=== PATIENT | female | born 1960 | race Caucasian/White ===

== ENCOUNTER 2024-12-21 18:57 | Emergency (ER) | payer MEDICARE, MEDICAID ==
[~2024-12-21] VITALS: Ht 165.1 cm; Wt 63.0 kg
[~2024-12-21 18:57] MED LIST: FOLI0.4T6 PO; GABA-530 PO; IBUP-2697 PO; LISI20TA28 PO; MAGN500C4 PO; MULT-25 PO; NOR5T PO; thiamine tablet PO
--- NOTE | 2024-12-21 19:27 | ELECTROCARDIOGRAPH REPORT ---
[facility] Test Date: 2024-12-21 Test Time: 19:24:14 Pat Name: JANIA MCKINLEY Department: EMERGENCY ROOM Room: Gender: F Sander Operator: : 1960 Requested By: FAN GONSALVES Order Number: [id number] Reading MD: Dr. Ceasar Romero Measurements Intervals [place] Rate: 110 P: 88 SC: 160 QRS: -7 QRSD: 90 T: 52 QT: 340 QTc: 461 Interpretive Statements Sinus tachycardia Low voltage, extremity and precordial leads Electronically Signed On 12-23-2024 19:15:[address] Ceasar Romero Please click the below link to view image of tracing.
[2024-12-21 19:37] LABS: MEAN PLATELET VOLUME 8.6 FL (7.4-10.4); RED CELL DISTRIBUTION WIDTH 14.5 % (11.5-14.5)
[2024-12-21 19:56] LABS: CREATININE 1.26 MG/DL (0.40-0.90); TOTAL CARBON DIOXIDE 17.1 MMOL/L (24-32); eCRCL 41 ML/MIN; eGFR 43 ML/MIN
--- NOTE | 2024-12-21 20:22 | Physician Documentation ---
History of Present Illness ~ Chief Complaint: Bloody Emesis Stated Complaint: VOMITTING Time Seen by MD: 20:09 Primary Medical Doctor: Lien Mode of Arrival: EMS HPI Patient presents to the emergency room with hematemesis since today. Patient is not on blood thinners but does take daily NSAIDs. No prior instances. She denies any black stools. Positive nausea. Patient has relapsed recently from her sister passing and admits to significant alcohol recently. Medication Reconciliation Allergies: Coded Allergies: nabumetone (Verified Allergy, Unknown, 06/10/24) Scheduled Amlodipine Besylate (Amlodipine Besylate), 5 MG PO DAILY Folic Acid* (Folic Acid*), 1 TAB PO HS, (Reported) Gabapentin (Gabapentin), 3 CAP PO TID, (Reported) Ibuprofen (Ibuprofen), 3 TAB PO Q8H, (Reported) Lisinopril (Lisinopril), 20 MG PO DAILY Magnesium Oxide (Magnesium), 500 MG PO DAILY Multivitamin with Folic Acid (Thera Tablet), 1 EACH PO Q24H [thiamine tablet], 100 MG PO DAILY Review of Systems ROS All review of systems negative except as per HPI Physical Exam Vital Signs: Temperature: 97.3, Source: Oral, Heart Rate: 110, Respiratory Rate: 19, BP: 130/67, Pulse Oximetry: 97, Weight: 63.000 Oxygen Flow Rate: 0 Physical Exam General: Patient is awake, alert, oriented x4 in no acute distress Head: Normocephalic and atraumatic. Eyes: Conjunctival normal. EOMI. PERRL. ENT: Mucous membranes moist. Neck: Supple, trachea is midline. Chest: Clear to auscultation bilaterally without rales, rhonchi, or wheezes. There is no accessory muscle use or retractions. Cardiac: Tachycardic and regular without murmurs, gallops, or rubs. Abd: Soft, nondistended, nontender, with normoactive bowel sounds. No guarding, rebound, or rigidity. Progress Progress Note EKG interpreted by myself shows time of 1923, rate 110, sinus tachycardia, normal axis, no ST changes Results/Orders Results/Orders Orders - KALIN ZAYAS MD Straight Cath For Urine Sample (12/21/24 19:11) Cult Urine + [address] [facility] (12/21/24 23:08) Completed Orders - KALIN ZAYAS MD Cbc/Diff (12/21/24 19:11) Lipase (12/21/24 19:11) CMP (12/21/24 19:11) Hcg, Ur Ql (12/21/24 19:22) BMP (12/21/24 19:22) Electrocardiogram (12/21/24 19:23) Thiamine Inj. (Thiamine Inj.) (12/21/24 20:20) Normal Saline 1000ml (0.9% Sodium Chlori (12/21/24 20:20) Pantoprazole 40mg Iv (Protonix 40mg Iv) (12/21/24 20:20) Ethanol (12/21/24 19:32) Procalcitonin (12/21/24 20:36) Ondansetron Inj. (Zofran 4mg/2ml Vial) (12/21/24 20:50) Pantoprazole 40mg/Ns 100ml Bag (Protonix (12/21/24 21:45) Ua W/Microscopic, Cult If Ind (12/21/24 22:55) Morphine 4mg/Ml Inj. (Morphine Inj.) (12/22/24 00:25) Midazolam 1 Mg/Ml 2ml Inj. (Versed 1 Mg/ (12/22/24 00:50) Vital Signs 12/21/24 12/21/24 12/21/24 12/22/24 19:09 19:31 23:17 01:23 Temp 97.3 97.3 97.3 Pulse 110 114 118 Resp 19 28 17 B/P (MAP) 130/67 143/70 (94) 119/54 (75) Pulse Ox 97 96 94 O2 Flow Rate 0 0 0 Laboratory Tests Test 12/21/24 19:32 12/21/24 22:55 White Blood Count 17.5 H Red Blood Count 4.35 Hemoglobin 13.0 Hematocrit 39.2 Mean Corpuscular Volume 90.1 Mean Corpuscular Hemoglobin 29.8 Mean Corpuscular Hemoglobin Concent 33.1 Red Cell Distribution Width 14.5 Platelet Count 250 Mean Platelet Volume 8.6 Neutrophils (%) (Auto) 88.1 H Lymphocytes (%) (Auto) 9.9 L Monocytes (%) (Auto) 1.7 L Eosinophils (%) (Auto) 0 Basophils (%) (Auto) 0.3 Neutrophils # (Auto) 15.4 H Lymphocytes # (Auto) 1.7 Monocytes # (Auto) 0.3 Eosinophils # (Auto) 0.0 Basophils # (Auto) 0.1 CBC Comment Sodium Level 141 Potassium Level 4.6 Chloride Level 103 Carbon Dioxide Level 17.1 L Anion Gap 21 H Blood Urea Nitrogen 38 H Creatinine 1.26 H Estimated GFR/1.73 m2 43 BUN/Creatinine Ratio 30.2 H Glucose Level 85 Calcium Level 8.9 Total Bilirubin 0.3 Aspartate Amino Transf (AST/SGOT) 24 Alanine Aminotransferase (ALT/SGPT) 25 Alkaline Phosphatase 107 Total Protein 7.8 Albumin 4.2 Globulin 3.6 Albumin/Globulin Ratio 1.2 Lipase 10 L Procalcitonin 0.09 Chemistry Comments Ethyl Alcohol Level 249 H Urine Specimen Description Cln catch midstream Urine Color Yellow Urine Clarity Clear Urine pH 5.5 Urine Specific [place] 1.025 Urine Protein Negative Urine Glucose (UA) Negative Urine Ketones 40 H Urine Occult Blood Negative Urine Nitrite Negative Urine Bilirubin Negative Urine Urobilinogen 0.2 Urine Leukocyte Esterase Trace H Urine RBC 0-2 Urine WBC 5-10 H Urine Squamous Epithelial Cells Moderate Urine Bacteria Few Urine Mucus Few Urine Culture Indicated Indicated Volume Urine Centrifuged 10 ml Urine HCG, Qualitative Negative Urine Comment Microbiology Date/Time Source Procedure Growth Status 12/21/24 23:08 Urine Clean Catch Midstream Urine Culture - Preliminary NO GROWTH AFTER 1 DAY Resulted Medical Decision Making Findings Patient presents to the emergency room with chief complaint of hematemesis witnessed by EMS. Differentials include but are not limited to upper GI bleed, ulcer, esophageal varices, Snehal-Jimenez, anemia therefore emergent labs ordered. No abdominal tenderness to palpation therefore CT scan of her abdomen was not performed. Patient's hemoglobin is reassuring although she does have an elevated BUN suggesting upper GI bleed. Protonix initiated. I do not feel saul prieto requires octreotide as she only recently relapsed and denies any black stools. Daily NSAID use that has likely contributing to patient's GI bleed. No additional hematemesis in the emergency room. We do not have GI services therefore we are arranging transfer to facility with GI services. Departure Disposition: 51 HOSPICE/MEDICAL FACILITY Impression: Primary Impression: Hematemesis Additional Impression: Alcoholic intoxication Condition: Guarded Referrals: NO PRIMARY CARE PROVIDER (PCP) Signature Scribe Signature: No scribe Attestation: The note accurately reflects work and decisions made by me.Kalin Zayas MD 12/23/24 00:56 KALIN ZAYAS MD Dec 21, 2024 20:22
[2024-12-21 20:31] LABS: ETHANOL 249 MG/DL (<10)
[2024-12-21] MEDS: thiamine 100mg/ml 2ml inj. IV ONE (20:41)
[2024-12-21] MEDS: normal saline 1000ML IV soln IVB ONE (20:43)
[2024-12-21] MEDS: ondansetron/PF 4mg/2ml inj IV ONE (21:10)
[2024-12-21 23:02] LABS: LEUKOCYTE ESTERASE ,URINE TRACE (Neg); NITRITES, URINE NEGATIVE (Neg); OCCULT BLOOD,URINE NEGATIVE (Neg)
[2024-12-21 23:03] LABS: URINE HCG NEGATIVE (NEG)
[2024-12-21 23:05] LABS: UA COLLECTION TYPE CLN CATCH MIDSTREAM
[2024-12-21 23:07] LABS: MUCUS STRANDS FEW /LPF (Neg); SQUAMOUS EPITHELIAL CELL,UR MODERATE /LPF (FEW)
[2024-12-21] MEDS: pantoprazole 40MG/NS 100ML BAG 100 ML IV SCH (23:08)
[2024-12-22] MEDS: midazolam 1 mg/ML 2ml injection IV ONE (01:03)
[2024-12-22 01:23] VITALS: BP 119/54; PULSE 118; RESP 17; TEMP 97.3; O2SAT 94
[2024-12-22] MEDS: morphine 4 MG/ML inj SYRINge IV ONE (01:38)
== END 2024-12-22 03:03 | disposition hospice, inpatient (51) ==
LOC: ER 18:58
DX: K92.0 Hematemesis (principal); F10.129 Alcohol abuse with intoxication, unspecified; Z88.8 Allergy status to other drugs, medicaments and biological substances; Z79.899 Other long term (current) drug therapy; Y90.8 Blood alcohol level of 240 mg/100 ml or more
CPT/HCPCS: 36415; 80053; 81001; 81025; 83690; 84145; 85025; 87088; 93005; 96365; 96366; 96375; 99284; G0480; J2250; J2270; J2405; J2470; J3411; J7030; 80320

== ENCOUNTER 2025-02-02 13:13 | Inpatient (IN) | payer MEDICARE, MEDICAID ==
[~2025-02-02] VITALS: Ht 167.6 cm; Wt 65.9 kg
[~2025-02-02 13:13] MED LIST changes: +FER325T PO; -IBUP-2697 PO; +PANT40TA54 PO
--- NOTE | 2025-02-02 13:24 | Physician Documentation ---
History of Present Illness ~ Chief Complaint: ETOH Stated Complaint: GI BLEED Time Seen by MD: 13:19 Primary Medical Doctor: Lien VERGARA 64-year-old female presents to the ED with a complaint one day of hematemesis. States that she had stopped drinking previously and recently has been drinking large amounts of hard alcohol. She says she thinks she may be drinking a proximally 1/5 of vodka daily. She says she does have a history gastric ulcers which required surgical correction she denies any black tarry stools but reports that the vomit is coffee-ground in nature. Denies any history of esophageal varices. Tetanus within 5 years?: Yes Medication Reconciliation Allergies: Coded Allergies: nabumetone (Verified Allergy, Unknown, 02/02/25) Scheduled Amitriptyline Hcl (Amitriptyline Hcl), 1-2 TAB PO HS, (Reported) Amlodipine Besylate (Amlodipine Besylate), 5 MG PO DAILY Amlodipine Besylate (Amlodipine Besylate), 1 TAB PO DAILY, (Reported) Cholecalciferol (Vitamin D3) (Vitamin D3), 1 TAB PO DAILY, (Reported) Ferrous Sulfate (Ferrous Sulfate), 325 MG PO DAILY Ferrous Sulfate (Ferrous Sulfate), 1 TAB PO DAILY, (Reported) Folic Acid* (Folic Acid*), 1 TAB PO HS, (Reported) Folic Acid* (Folic Acid*), 1 TAB PO DAILY, (Reported) Gabapentin (Gabapentin), 3 CAP PO TID, (Reported) Lisinopril (Lisinopril), 20 MG PO DAILY Magnesium Oxide (Magnesium), 500 MG PO DAILY Multivitamin (Multivitamin), 1 TAB PO DAILY, (Reported) Multivitamin with Folic Acid (Thera Tablet), 1 EACH PO Q24H Pantoprazole Sodium (Pantoprazole Sodium), 40 MG PO DAILY [thiamine tablet], 100 MG PO DAILY Miscellaneous Medications Gabapentin (Gabapentin ER), (Reported) Prazosin Hcl (Prazosin Hcl), (Reported) Review of Systems All Other Systems at this time: Reviewed and Negative ROS As stated above in the HPI, otherwise all systems are reviewed and negative. Physical Exam Vital Signs: Temperature: 97.8, Source: Oral, Heart Rate: 120, Respiratory Rate: 18, BP: 124/64, Pulse Oximetry: 98, Weight: 69.000 Physical Exam General: Alert, no apparent distress. Slurred speech, glossy eyes Respiratory: Lungs clear, no respiratory distress. Cardiovascular: Regular rate and rhythm, no murmurs. Gastrointestinal: Soft, nontender, nondistended. Bowels sounds present. Neurologic: Oriented x4. Psychiatric: Normal mood and affect. Skin: Mildly pale, warm and dry. No edema, no ecchymosis. General Appearance: no apparent distress Progress Results/Orders Results/Orders Orders - DOUG LAURENT MEAT DRESSER Page Hospitalist (02/02/25 ) Completed Orders - DOUG LAURENT MEAT DRESSER Hcg, Ur Ql (02/02/25 13:23) Cbc/Diff (02/02/25 13:23) BMP (02/02/25 13:23) Lipase (02/02/25 13:23) CMP (02/02/25 13:23) Normal Saline 1000ml (0.9% Sodium Chlori (02/02/25 13:30) Ondansetron Inj. (Zofran 4mg/2ml Vial) (02/02/25 13:30) Pantoprazole 40mg Iv (Protonix 40mg Iv) (02/02/25 13:30) Dextrose 5%-1/2 Normal Saline (Dextrose (02/02/25 15:05) Thiamine Inj. (Thiamine Inj.) (02/02/25 15:20) Folic Acid Inj. (Folic Acid Inj.) (02/02/25 15:20) Ethanol (02/02/25 13:33) MG (02/02/25 13:33) Medications Received in ER Medications (Trade) Dose Ordered Sig/Tomás Route PRN Reason Start Time Stop Time Status Last Admin Dose Admin (0.9% sodium chloride (NS) 1000ml IV soln) 1,000 ml ONCE ONCE IVB 02/02/25 13:30 02/02/25 13:31 DC 02/02/25 13:34 1,000 ML (Zofran 4mg/2ml vial) 4 mg ONCE ONCE IV 02/02/25 13:30 02/02/25 13:31 DC 02/02/25 13:34 4 MG (Protonix 40mg IV) 40 mg NOW ONCE IV 02/02/25 13:30 02/02/25 13:37 DC 02/02/25 14:15 40 MG Dextrose/Sodium Chloride 1,000 ml @ 200 mls/hr Q5H ONCE IV 02/02/25 15:05 02/02/25 15:30 DC 02/02/25 15:31 200 MLS/HR (thiamine inj.) 100 mg ONCE ONCE IV 02/02/25 15:20 02/02/25 15:21 DC 02/02/25 15:30 100 MG (folic acid inj.) 1 mg ONCE ONCE IV 02/02/25 15:20 02/02/25 15:21 DC 02/02/25 15:31 1 MG (morphine inj.) 1 mg Q4H PRN IV moderate pain (4-6) 02/02/25 15:15 02/02/25 17:39 1 MG Vital Signs 02/02/25 02/02/25 02/02/25 02/02/25 13:16 13:20 14:17 14:59 Temp 97.8 Pulse 120 116 115 Resp 18 16 16 18 B/P (MAP) 124/64 106/47 (66) 117/69 (85) Pulse Ox 98 97 98 O2 Flow Rate 0 0 Laboratory Tests Test 02/02/25 13:33 White Blood Count 10.9 Red Blood Count 4.47 Hemoglobin 13.2 Hematocrit 40.5 Mean Corpuscular Volume 90.6 Mean Corpuscular Hemoglobin 29.6 Mean Corpuscular Hemoglobin Concent 32.6 L Red Cell Distribution Width 14.3 Platelet Count 315 Mean Platelet Volume 9.2 Neutrophils (%) (Auto) 72.3 Lymphocytes (%) (Auto) 23.8 Monocytes (%) (Auto) 3.7 Eosinophils (%) (Auto) 0 Basophils (%) (Auto) 0.2 Neutrophils # (Auto) 7.9 H Lymphocytes # (Auto) 2.6 Monocytes # (Auto) 0.4 Eosinophils # (Auto) 0.0 Basophils # (Auto) 0.0 CBC Comment Sodium Level 140 Potassium Level 3.6 Chloride Level 98 L Carbon Dioxide Level 14.0 *L Anion Gap 28 H Blood Urea Nitrogen 27 H Creatinine 0.84 Estimated GFR/1.73 m2 68 BUN/Creatinine Ratio 32.1 H Glucose Level 59 L Lactic Acid Level 7.1 *H Calcium Level 9.1 Magnesium Level 1.9 Total Bilirubin 0.4 Aspartate Amino Transf (AST/SGOT) 28 Alanine Aminotransferase (ALT/SGPT) 20 Alkaline Phosphatase 92 Total Protein 8.0 Albumin 4.6 Globulin 3.4 Albumin/Globulin Ratio 1.4 Lipase 9 L Chemistry Comments Ethyl Alcohol Level 269 H Medical Decision Making Findings This patient initially presented intoxicated but in no acute distress however upon further evaluation of her laboratory values she presents with a all the clinical findings for alcoholic ketoacidosis. Treated her with a bolus of fluids, dextrose half-normal and hospital admission. Her CO2 was grossly abnormal and she had a lactic acidosis over seven. Going to admit her for further evaluation of alcoholic pancreatitis Differential Dx:Considerations: Intoxication - ETOH, Intoxication - other drug, Sub. Abuse -continuous, Sub. Abuse-intermittent, Skull fracture, Fracture - other bone, Personality disorder, Closed head injury, Cervical spine injury, Abrasion, Confusion, Hematoma, Laceration, Foreign body, Dehydration, Encephalopathy, Hepatitis, Pancreatitis, Thiamine deficiency, Other Departure Disposition: ADMITTED INPATIENT Impression: Primary Impression: Alcoholic intoxication Additional Impressions: Alcoholic ketoacidosis Hypokalemia Referrals: NO PRIMARY CARE PROVIDER (PCP) Signature Scribe Signature: v Attestation: Scribed for Doug Laurent Programming Engineer by Doug Gonzalez NP . 02/02/25 18:13 DOUG LAURENT NP Feb 02, 2025 13:24
--- NOTE | 2025-02-02 13:24 | ELECTROCARDIOGRAPH REPORT ---
[facility] Test Date: 2025-02-02 Test Time: 13:15:37 Pat Name: JANIA MCKINLEY Department: EMERGENCY ROOM Room: ED 2 Gender: F Resident Care Assistant: HALLE : 1960 Requested By: JASON ALLISON Order Number: [id number] Reading MD: Dr. Ceasar Romero Measurements Intervals [place] Rate: 116 P: 80 AR: 152 QRS: -13 QRSD: 93 T: 60 QT: 338 QTc: 470 Interpretive Statements Sinus tachycardia Low voltage, extremity and precordial leads Electronically Signed On 02-02-2025 18:24:[address] Ceasar Romero Please click the below link to view image of tracing.
[2025-02-02] MEDS: normal saline 1000ML IV soln IVB ONE (13:34)
[2025-02-02] MEDS: ondansetron/PF 4mg/2ml inj IV ONE (13:34)
[2025-02-02 14:05] LABS: MEAN PLATELET VOLUME 9.2 FL (7.4-10.4); RED CELL DISTRIBUTION WIDTH 14.3 % (11.5-14.5)
[2025-02-02 14:28] LABS: CREATININE 0.84 MG/DL (0.40-0.90); eCRCL 66 ML/MIN; eGFR 68 ML/MIN
[2025-02-02 14:42] LABS: TOTAL CARBON DIOXIDE 14.0 MMOL/L (24-32)
[2025-02-02] MEDS ORDERED: thiamine 100mg/ml 2ml inj. IV STA (15:11)
[2025-02-02] MEDS ORDERED: mag hydrox/Alum hydrox/simeth 30ml oral suspension PO PRN (15:15)
[2025-02-02] MEDS ORDERED: dextrose 50%-water 50ml dispensing syringe IV PRN ×2 (15:15)
[2025-02-02] MEDS ORDERED: DEXTROSE 15 GM of carb/4 tabs (each vial/BOTTLE has 4 tablets) PO PRN ×2 (15:15)
[2025-02-02] MEDS ORDERED: magnesium sulf-water 2g/50mL 50 ML IV PRN (15:15)
[2025-02-02] MEDS ORDERED: magnesium hydroxide 30ml (MOM) UD suspension PO PRN (15:15)
[2025-02-02] MEDS ORDERED: HYDROcodone/acetaminophen 10/325mg tab PO PRN (15:15)
[2025-02-02] MEDS ORDERED: glucagon, human recombinant 1mg kit SUBCUT PRN (15:15)
[2025-02-02] MEDS ORDERED: magnesium Cl slow-release 64mg tablet PO PRN (15:15)
[2025-02-02] MEDS ORDERED: potassium Cl 20 mEq SR tablet PO PRN (15:15)
[2025-02-02] MEDS ORDERED: potassium Cl 40MEQ/1/2NS 520ml 520 ML IV PRN (15:15)
[2025-02-02] MEDS ORDERED: haloperidol lactate 5mg/ml inj IM PRN (15:15)
[2025-02-02] MEDS ORDERED: HYDROcodone/acetaminophen 5mg/325mg tablet PO PRN (15:15)
[2025-02-02] MEDS ORDERED: magnesium sulf-water 4G/100mL 100 ML IV PRN (15:15)
[2025-02-02] MEDS ORDERED: FERR325T29 PO (15:16)
[2025-02-02] MEDS ORDERED: FOLI1TAB27 PO (15:16)
[2025-02-02] MEDS ORDERED: AMLO5TAB16 PO (15:16)
[2025-02-02] MEDS ORDERED: AMIT25TA22 PO (15:16)
[2025-02-02] MEDS ORDERED: MULT-1249 PO (15:16)
[2025-02-02] MEDS ORDERED: CHOL100017 PO (15:16)
[2025-02-02] MEDS: thiamine 100mg/ml 2ml inj. IV ONE (15:30)
[2025-02-02] MEDS: folic acid 1mg/0.2ml inj IV ONE (15:31)
[2025-02-02 16:00] LABS: ETHANOL 269 MG/DL (<10)
[2025-02-02] MEDS ORDERED: GABA300T28 (16:00)
[2025-02-02] MEDS ORDERED: PRAZ1CAP5 (16:00)
[2025-02-02] MEDS ORDERED: hydrALAZINE 20mg/ml inj. IV PRN (16:25)
--- NOTE | 2025-02-02 16:26 | HISTORY AND PHYSICAL ---
History & Physical Providers to ~ History of Present Illness Reason for Admit\Complaint: alcoholic ketoacidosis, UGIB History of Present Illness Cara Amador is a 64-year-old female with past medical history significant for chronic alcoholism with multiple relapses reflux esophagitis, pre-pyloric antral ulceration and duodenitis who presented to the ED with chief complaint of coffee-ground emesis x 2 days. Last alcohol intake was this morning. Patient denies prior DE/CAD, CVA, cardiac arrhythmia, DVT/PE, or GIB. Patient denies chest pain, palpitations, shortness of breath, abdominal pain, diarrhea. Initial diagnostic findings were notable for positive alcohol level, anion gap metabolic acidosis with bicarb at 14, elevated lactic acid at 7.1. Patient is to be admitted for further workups and treatment. Allergies: Coded Allergies: nabumetone (Verified Allergy, Unknown, 02/02/25) Home Medications Home Medications Active Pantoprazole Sodium 40 Mg Tablet.dr 40 Mg PO DAILY 30 Days Ferrous Sulfate 325 Mg (65 Mg Iron) Tablet 325 Mg PO DAILY 30 Days Magnesium (Magnesium Oxide) 500 Mg Capsule 500 Mg PO DAILY 10 Days Thera Tablet (Multivitamin with Folic Acid) 400 Mcg Tablet 1 Each PO Q24H 30 Days [thiamine tablet] 100 MG Tablet 100 Mg PO DAILY 30 Days Lisinopril 20 Mg Tablet 20 Mg PO DAILY 30 Days Amlodipine Besylate 5 Mg Tablet 5 Mg PO DAILY 30 Days Reported Gabapentin ER (Gabapentin) 300 Mg Tab.er.24h Prazosin Hcl 1 Mg Capsule Ferrous Sulfate 325 Mg (65 Mg Iron) Tablet 1 Tab PO DAILY Amitriptyline Hcl 25 Mg Tablet 1-2 Tab PO HS Amlodipine Besylate 5 Mg Tablet 1 Tab PO DAILY Multivitamin 1 Each Tablet 1 Tab PO DAILY Vitamin D3 (Cholecalciferol (Vitamin D3)) 25 Mcg (1000 Unit) Tablet 1 Tab PO DAILY Folic Acid* (Folic Acid) Y Tab 1 Tab PO DAILY Folic Acid* (Folic Acid) 0.4 Mg Tablet 1 Tab PO HS Gabapentin 100 Mg Capsule 3 Cap PO TID Past Medical History Past Medical History Hypertension Chronic alcoholism Reflux esophagitis Pyloric antral ulceration and duodenitis Past Surgical History Surgical History Comment Lumbar surgeries Past Social History Social History Comment Alcohol: Chronic alcoholism with multiple relapses, resumed consuming heavy liquor x 4 days Tobacco: Denies Illicit drug use: Denies Living situation: Lives at home alone ROS ROS Other than positives in HPI, all 14 review of systems are negative Exam Vitals: Vital Signs Date Time Temp Pulse Resp B/P (MAP) Pulse Ox O2 Delivery O2 Flow Rate FiO2 02/02/25 16:01 113 18 122/69 (86) 95 0 02/02/25 13:16 97.8 General: Generalized weakness, A&Ox 3, NAD HEENT: Normocephalic, PERRLA Neck: Supple, trachea midline, no JVD Chest: Clear to auscultation bilaterally Cardiovascular: Tachycardia Abdomen: Soft and nontender Extremities: No cyanosis/clubbing/or edema Central Nervous System: CN II-XII intact, no focal deficits Musculoskeletal: No paraspinal muscle tenderness, no muscle spasm Skin: Warm and intact Diagnostic Data Last Recorded Lab Results: 02/02/25 1333 02/02/25 1333 Additional Plan Assessment & Plan Alcoholic ketoacidosis Metabolic acidosis, AGMA Alcohol intoxication Alcohol withdrawal Dehydration UGIB HTN Hx reflux esophagitis, pre-pyloric antral ulceration, duodenitis -bicarb 14, ketouria, elevated serum alcohol, hypoglycemia, lactic acid 7.1 -alcohol withdrawal protocol, thiamine, folic acid, fluid resuscitation, D51/2NS, PPI, consulted GI Dr. Brewster -follow repeat lactic acid, repeat BMP DVT/VTE prophylaxis: SCDs Code status: Full code I spent a total of 35 minutes discussing Advanced Care Planning measures with the patient. Advance care planning: Discussed with patient the importance of advance care planning in case of emergent situation. We discussed various resuscitative measures/ ACP with the patient at the time of admission. Patient voiced understanding and patient has decided on a full code status. Date of Service: Feb 02, 2025 Billing Provider: GOYO GARCIA Common Visit Codes: 53195-[id number] INP/OBS CARE (HIGH) Secondary Visit Codes: 08437-[id number] CARE PLAN 30 MINUTES GOYO GARCIA Feb 02, 2025 16:26
[2025-02-02] MEDS: INSULIN LISPRO 100 UNIT/ML INSULN.PEN MULTI-DOSE SQ SCH (17:00)
--- NOTE | 2025-02-02 17:21 | HISTORY AND PHYSICAL-Residence ---
History & Physical Providers to CC Resident Creating Document: JUAN RAMON BOND MARINO, RES ~ History of Present Illness Primary Medical Doctor: Namehaus Reason for Admit\Complaint: hematemesis History of Present Illness A 64-year-old female with past medical history significant of chronic alcoholism, reflux esophagitis, pre-pyloric antral ulceration and duodenitis, hypertension who presented to the ED with chief complaint of coffee-ground emesis started today morning associated with mild abdominal pain. Last alcohol intake was this morning. Patient states that she stopped drinking alcohol 2 years ago but she again started drinking alcohol from the past 4 days. She drinks about 700-1000 mL vodka per day. Patient denies any blood tarry stools. Denies any history of esophageal varices. Patient denies chest pain, palpitations, shortness of breath, diarrhea, constipation, syncope, dizziness. Patient had EGD in December which showed gastric ulcer. Patient never had colonoscopy. Allergies: Coded Allergies: nabumetone (Verified Allergy, Unknown, 02/02/25) Home Medications Home Medications Active Pantoprazole Sodium 40 Mg Tablet.dr 40 Mg PO DAILY 30 Days Ferrous Sulfate 325 Mg (65 Mg Iron) Tablet 325 Mg PO DAILY 30 Days Magnesium (Magnesium Oxide) 500 Mg Capsule 500 Mg PO DAILY 10 Days Thera Tablet (Multivitamin with Folic Acid) 400 Mcg Tablet 1 Each PO Q24H 30 Days [thiamine tablet] 100 MG Tablet 100 Mg PO DAILY 30 Days Lisinopril 20 Mg Tablet 20 Mg PO DAILY 30 Days Amlodipine Besylate 5 Mg Tablet 5 Mg PO DAILY 30 Days Reported Gabapentin ER (Gabapentin) 300 Mg Tab.er.24h Prazosin Hcl 1 Mg Capsule Ferrous Sulfate 325 Mg (65 Mg Iron) Tablet 1 Tab PO DAILY Amitriptyline Hcl 25 Mg Tablet 1-2 Tab PO HS Amlodipine Besylate 5 Mg Tablet 1 Tab PO DAILY Multivitamin 1 Each Tablet 1 Tab PO DAILY Vitamin D3 (Cholecalciferol (Vitamin D3)) 25 Mcg (1000 Unit) Tablet 1 Tab PO DAILY Folic Acid* (Folic Acid) Y Tab 1 Tab PO DAILY Folic Acid* (Folic Acid) 0.4 Mg Tablet 1 Tab PO HS Gabapentin 100 Mg Capsule 3 Cap PO TID Past Medical History Past Medical History chronic alcoholism Reflux esophagitis pre-pyloric antral ulceration and duodenitis Hypertension Past Surgical History Surgical History Comment Intestinal rupture with colostomy bag (removed) Lumbar surgeries Past Social History Social History Comment Ex-smoker, smoked 5-6 cigarettes per day for about 20 years and stopped smoking in June 2023. Chronic alcoholism with multiple relapses, resumed consuming heavy liquor x 4 days Denies any recreational drug use She lives at home alone ROS All Other Systems: Reviewed and Negative ROS Constitutional: No fever, chills, dizziness, weight gain or loss, night sweats Eyes: No pain, erythema, discharge, blurring of vision ENT: No sore throat, epistaxis, tinnitus Cardiovascular:No chest pain, palpitations, syncope, lower extremity edema, paroxysmal nocturnal dyspnea Respiratory: No Shortness of breath and cough, No hemoptysis. Gastrointestinal:Reports Abdominal pain, vomiting,nausea . Normal appetite. No constipation,diarrhea, hematemesis, and melena. Musculoskeletal: No swelling or edema of extremities. Integumentary: No change in skin, hair, nails. No swelling, bruising, abrasions Neurologic: No weakness,No headache, neck pain, numbness or tingling of the extremities, Psychiatric: No delusions, depression, loss of interest in normal activity or change in sleep pattern, hallucinations, suicidal ideations Endocrine: No fatigue, no weakness. polydipsia, polyuria, change in appetite, heat or cold intolerance, sweating, dry skin Hematological: No bleeding, petechiae, bruising Allergies: No asthma or urticaria Exam Vitals: Vital Signs Date Time Temp Pulse Resp B/P (MAP) Pulse Ox O2 Delivery O2 Flow Rate FiO2 02/02/25 16:01 113 18 122/69 (86) 95 0 02/02/25 13:16 97.8 General: Awake , alert and oriented to time,place, person, in mild distress HEENT: Atraumatic, normocephalic, PERRLA, EOMI, anicteric sclera ; pink conjunctiva, dry mucos membranes Neck: Trachea midline. Supple, normal range of motion, no JVD, no lymphadenopathy Chest and Respiratory: Equal breath sounds bilaterally, no tachypnea, wheezing, ronchi,rubs .Chest wall is symmetric and without deformity. Cardiac: S1, S2 heard, tachycardia with regular rhythm, no murmurs heard. Abdomen: Soft, No tenderness, No guarding or rigidity, Whitaker's sign negative. normal bowel sounds x4 quadrant, no hepatosplenomegaly MSK: Range of motion of all extremities are normal. There is no joint pain or joint swelling or joint erythema. There is no muscle pain or tenderness or swelling. Extremities: warm, well-perfused, No cyanosis, clubbing, 2+ pulses felt Neurological: Speech is clear, alert, and oriented x 4. No sensory or motor deficits. Cranial nerves II-XII intact. Skin: Warm and dry Psychiatry: Affect and mood are normal Diagnostic Data Last Recorded Lab Results: 02/02/25 1333 02/02/25 1333 Date of Service: Feb 02, 2025 Billing Provider: CASSANDRA SANTIAGO MD, SUNIL KUMAR, RES Feb 02, 2025 17:21
[2025-02-02 17:24] LABS: URINE HCG NEGATIVE (NEG)
[2025-02-02 17:26] LABS: LEUKOCYTE ESTERASE ,URINE NEGATIVE (Neg); NITRITES, URINE NEGATIVE (Neg); OCCULT BLOOD,URINE TRACE-INTACT (Neg)
[2025-02-02 17:28] LABS: UA COLLECTION TYPE CLN CATCH MIDSTREAM
[2025-02-02 17:32] LABS: MUCUS STRANDS NONE SEEN /LPF (Neg); SQUAMOUS EPITHELIAL CELL,UR NONE SEEN /LPF (FEW)
[2025-02-02] MEDS: ringers solution, lacted 1,000 ML IV ONE (17:38)
[2025-02-02 17:43] LABS: URINE AMPHETAMINE SCREEN NEGATIVE (Neg); URINE BARBITUATE SCREEN NEGATIVE (Neg); URINE BENZODIAZEPINES SCREEN NEGATIVE (Neg); URINE CANNABINOID SCREEN NEGATIVE (Neg); URINE COCAINE SCREEN NEGATIVE (Neg); URINE METHADONE SCREEN NEGATIVE (Neg); URINE OPIATE SCREEN POSITIVE (Neg); URINE PHENCYCLIDINE SCREEN NEGATIVE (Neg)
--- NOTE | 2025-02-02 17:52 | CONSULTATION REPORT - RESIDENT ---
Consult Providers to CC Resident Creating Document: JUAN RAMON DAMON RES History of Present Illness Reason for Admit\Complaint: hematemesis History of Present Illness A 64-year-old female with past medical history significant of chronic alcoholism, reflux esophagitis, pre-pyloric antral ulceration and duodenitis, hypertension who presented to the ED with chief complaint of coffee-ground emesis started today morning associated with mild abdominal pain. Last alcohol intake was this morning. Patient states that she stopped drinking alcohol 2 years ago but she again started drinking alcohol from the past 4 days. She drinks about 700-1000 mL vodka per day. Patient denies any blood tarry stools. Denies any history of esophageal varices. Patient denies chest pain, palpitations, shortness of breath, diarrhea, constipation, syncope, dizziness. Patient had EGD in December which showed gastric ulcer. Patient never had colonoscopy. Allergies: Coded Allergies: nabumetone (Verified Allergy, Unknown, 02/02/25) Home Medications Home Medications Active Pantoprazole Sodium 40 Mg Tablet.dr 40 Mg PO DAILY 30 Days Ferrous Sulfate 325 Mg (65 Mg Iron) Tablet 325 Mg PO DAILY 30 Days Magnesium (Magnesium Oxide) 500 Mg Capsule 500 Mg PO DAILY 10 Days Thera Tablet (Multivitamin with Folic Acid) 400 Mcg Tablet 1 Each PO Q24H 30 Days [thiamine tablet] 100 MG Tablet 100 Mg PO DAILY 30 Days Lisinopril 20 Mg Tablet 20 Mg PO DAILY 30 Days Amlodipine Besylate 5 Mg Tablet 5 Mg PO DAILY 30 Days Reported Gabapentin ER (Gabapentin) 300 Mg Tab.er.24h Prazosin Hcl 1 Mg Capsule Ferrous Sulfate 325 Mg (65 Mg Iron) Tablet 1 Tab PO DAILY Amitriptyline Hcl 25 Mg Tablet 1-2 Tab PO HS Amlodipine Besylate 5 Mg Tablet 1 Tab PO DAILY Multivitamin 1 Each Tablet 1 Tab PO DAILY Vitamin D3 (Cholecalciferol (Vitamin D3)) 25 Mcg (1000 Unit) Tablet 1 Tab PO DAILY Folic Acid* (Folic Acid) Y Tab 1 Tab PO DAILY Folic Acid* (Folic Acid) 0.4 Mg Tablet 1 Tab PO HS Gabapentin 100 Mg Capsule 3 Cap PO TID Past Medical History Past Medical History chronic alcoholism Reflux esophagitis pre-pyloric antral ulceration and duodenitis Hypertension Past Surgical History Surgical History Comment Intestinal rupture with colostomy bag (removed) Lumbar surgeries Past Social History Social History Comment Ex-smoker, smoked 5-6 cigarettes per day for about 20 years and stopped smoking in June 2023. Chronic alcoholism with multiple relapses, resumed consuming heavy liquor x 4 days Denies any recreational drug use She lives at home alone ROS ROS Constitutional: No fever, chills, dizziness, weight gain or loss, night sweats Eyes: No pain, erythema, discharge, blurring of vision ENT: No sore throat, epistaxis, tinnitus Cardiovascular:No chest pain, palpitations, syncope, lower extremity edema, paroxysmal nocturnal dyspnea Respiratory: No Shortness of breath and cough, No hemoptysis. Gastrointestinal:Reports Abdominal pain, vomiting,nausea . Normal appetite. No constipation,diarrhea, hematemesis, and melena. Musculoskeletal: No swelling or edema of extremities. Integumentary: No change in skin, hair, nails. No swelling, bruising, abrasions Neurologic: No weakness,No headache, neck pain, numbness or tingling of the extremities, Psychiatric: No delusions, depression, loss of interest in normal activity or change in sleep pattern, hallucinations, suicidal ideations Endocrine: No fatigue, no weakness. polydipsia, polyuria, change in appetite, heat or cold intolerance, sweating, dry skin Hematological: No bleeding, petechiae, bruising Allergies: No asthma or urticaria Exam Vitals: Vital Signs Date Time Temp Pulse Resp B/P (MAP) Pulse Ox O2 Delivery O2 Flow Rate FiO2 02/02/25 16:01 113 18 122/69 (86) 95 0 02/02/25 13:16 97.8 General: Awake , alert and oriented to time,place, person, in mild distress HEENT: Atraumatic, normocephalic, PERRLA, EOMI, anicteric sclera ; pink conjunctiva, dry mucos membranes Neck: Trachea midline. Supple, normal range of motion, no JVD, no lymphadenopathy Chest and Respiratory: Equal breath sounds bilaterally, no tachypnea, wheezing, ronchi,rubs .Chest wall is symmetric and without deformity. Cardiac: S1, S2 heard, tachycardia with regular rhythm, no murmurs heard. Abdomen: Soft, No tenderness, No guarding or rigidity, Whitaker's sign negative. normal bowel sounds x4 quadrant, no hepatosplenomegaly MSK: Range of motion of all extremities are normal. There is no joint pain or joint swelling or joint erythema. There is no muscle pain or tenderness or swelling. Extremities: warm, well-perfused, No cyanosis, clubbing, 2+ pulses felt Neurological: Speech is clear, alert, and oriented x 4. No sensory or motor deficits. Cranial nerves II-XII intact. Skin: Warm and dry Psychiatry: Affect and mood are normal Diagnostic Data Last Recorded Lab Results: 02/02/25 1333 02/02/25 1333 Additional Plan Hematemesis Possibly secondary to upper GI bleed Hx reflux esophagitis, pre-pyloric antral ulceration, duodenitis EGD in december 2024 showed ulcer in the stomach H&H are within normal limits Patient is hemodynamically stable Monitor H&H, transfuse PRBC if hemoglobin level is less than 7 Started on IV Protonix 40 mg b.i.d. daily Continue IV fluids IV Zofran 4 mg q.6h p.r.n. Started on NPO Planned for EGD tomorrow Alcoholic ketoacidosis Metabolic acidosis, AGMA Alcohol intoxication Alcohol withdrawal Dehydration HTN -continue management of all other comorbid conditions as per primary hospitalist team Code status: Full code DVT prophylaxis : SCD GI prophylaxis: IV protonix Nutrition: NPO Line/tube: PIV Disposition: The patient was admitted with hematemesis. Patient is hemodynamically stable. Planned for endoscopy tomorrow. Lakeshia Damon MD Internal Medicine Resident, PGY 1 Date of Service: Feb 02, 2025 Billing Provider: CASSANDRA SANTIAGO MD, SUNIL KUMAR, RES Feb 02, 2025 17:52
[2025-02-02 19:12] VITALS: BP 110/62; PULSE 108; RESP 25; TEMP 97.7; O2SAT 97
[2025-02-02] MEDS: K and/or MAG REPLACEMENT MC SCH (20:00)
[2025-02-02 20:48] LABS: CREATININE 1.07 MG/DL (0.40-0.90); eCRCL 52 ML/MIN; eGFR 52 ML/MIN
[2025-02-02 21:00] VITALS: RESP 25; O2SAT 97
[2025-02-02 21:09] LABS: TOTAL CARBON DIOXIDE 13.8 MMOL/L (24-32)
[2025-02-02] MEDS: sodium bicarbonate (8.4%) inj. 150 MEQ in dextrose 5%-water 1,000 ML IV SCH (21:20)
[2025-02-02 22:00] VITALS: BP 122/74; PULSE 106; RESP 17; TEMP 97.3; O2SAT 98
[2025-02-02] MEDS: docusate sod 100mg capsule PO SCH (22:06)
[2025-02-02] MEDS: thiamine 100mg/ml 2ml inj. IV SCH (22:06)
[2025-02-02] MEDS: ondansetron/PF 4mg/2ml inj IV PRN (22:29)
[2025-02-03] VITALS (17 sets, daily range): BP systolic 126–158; BP diastolic 66–95; PULSE 67–99; RESP 11–27; TEMP 97.5–98.2; O2SAT 92–100
[2025-02-03 06:06] LABS: MEAN PLATELET VOLUME 8.2 FL (7.4-10.4); RED CELL DISTRIBUTION WIDTH 14.0 % (11.5-14.5)
[2025-02-03 06:40] LABS: CREATININE 0.70 MG/DL (0.40-0.90); TOTAL CARBON DIOXIDE 30.0 MMOL/L (24-32); eCRCL 76 ML/MIN; eGFR 84 ML/MIN
[2025-02-03] MEDS: folic acid 1mg/0.2ml inj IV SCH (08:23)
[2025-02-03] MEDS: multivitamins, therapeutics tablet PO SCH (08:24)
--- NOTE | 2025-02-03 10:08 | PROGRESS NOTE- Residence ---
Progress Note - Resident Providers to CC Resident Creating Document: JUAN RAMON DAMON RES ~ Antibiotic Timeout Antibiotic Ordered?: No Subjective Patient was seen and examined at bedside. Patient denies vomiting of blood after admitted to hospital. No acute overnight events. Patient planned for EGD today. Objective Vital Signs Date Time Temp Pulse Resp B/P (MAP) Pulse Ox O2 Delivery O2 Flow Rate FiO2 02/03/25 06:00 97.5 89 16 129/66 (87) 95 Room Air 02/02/25 17:54 0 Result Diagram: 02/03/25 0539 02/03/25 0539 Awake , alert and oriented to time,place, person, not in distress HEENT: Atraumatic, normocephalic, PERRLA, EOMI, anicteric sclera ; pink conjunctiva, moist mucos membranes Neck: Trachea midline. Supple, normal range of motion, no JVD, no lymphadenopathy Chest and Respiratory: Equal breath sounds bilaterally, no tachypnea, wheezing, ronchi,rubs .Chest wall is symmetric and without deformity. Cardiac: S1, S2 heard, rate and rhythm are normal, no murmurs heard. Abdomen: Soft, No tenderness, No guarding or rigidity, Whitaker's sign negative. normal bowel sounds x4 quadrant, no hepatosplenomegaly MSK: Range of motion of all extremities are normal. There is no joint pain or joint swelling or joint erythema. There is no muscle pain or tenderness or swelling. Extremities: warm, well-perfused, No cyanosis, clubbing, 2+ pulses felt Neurological: Speech is clear, alert, and oriented x 4. No sensory or motor deficits. Cranial nerves II-XII intact. Skin: Warm and dry Psychiatry: Affect and mood are normal Assessment Assessment A 64 years old female patient admitted with coffee-ground emesis possibly secondary to GI bleed. Patient planned for endoscopy today followed by colonoscopy tomorrow. Plan Plan Hematemesis Reflux esophagitis without bleeding Hx reflux esophagitis, pre-pyloric antral ulceration, duodenitis EGD in december 2024 showed ulcer in the stomach H&H are 10.8 and 31.0 Patient is hemodynamically stable Monitor H&H, transfuse PRBC if hemoglobin level is less than 7 Started on IV Protonix 40 mg b.i.d. daily Continue IV fluids IV Zofran 4 mg q.6h p.r.n. EGD showed: EGD showed: LA grade B reflux esophagitis with no bleeding Congested, discolored, erythematous, eroded, granular and petechial mucosa in the antrum and pre-pyloric region of the stomach, biopsied.Awaiting pathology results Normal duodenum Planned for colonoscopy tomorrow Alcoholic ketoacidosis Metabolic acidosis, AGMA Alcohol intoxication Alcohol withdrawal Dehydration HTN -continue management of all other comorbid conditions as per primary hospitalist team Code status: Full code DVT prophylaxis : SCD GI prophylaxis: IV protonix Line/tube: PIV Disposition: The patient was admitted with hematemesis. Patient is hemodynamically stable. EGD showed flex esophagitis without bleeding. Planned for colonoscopy tomorrow. Lakeshia Damon MD Internal Medicine Resident, PGY 1 Date of Service: Feb 03, 2025 Billing Provider: CASSANDRA SANTIAGO MD, SUNIL KUMAR, RES Feb 03, 2025 10:08
--- NOTE | 2025-02-03 11:26 | PROGRESS NOTE ---
Daily Progress Note Providers to CC ~ Antibiotic Timeout Antibiotic Ordered?: No Subjective No acute events overnight. Patient examined at bedside. No new complaints, not in acute distress. Patient denies chest pain, sob, palpitations, abdominal pain, n/v/d. Vss, labs notable for normalized lactic acid, anion gapand bicarb. EGD today, colonoscopy tomorrow. 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 Brewster -follow repeat lactic acid, repeat BMP -9/3: normalized lactic acid, bicarb, anion gap. EGD today, colonoscopy tomorrow. DVT/VTE prophylaxis: SCDs Code status: Full code Date of Service: Feb 03, 2025 Billing Provider: GOYO GARCIA Common Visit Codes: [id number] INP/OBS CARE(HIGH) GOYO GARCIA Feb 03, 2025 11:26
[2025-02-03] MEDS ORDERED: simethicone 40mg/0.6ml oral drops 15ml ONE (12:00)
[2025-02-03] MEDS ORDERED: LIDOcaine 2% Viscous 15ml cup ONE (12:00)
[2025-02-03] MEDS ORDERED: propofol inj 20 ML IV ONE (12:16)
[2025-02-03] MEDS: ondansetron 4mg rapidly disintigrating tab PO PRN (13:50)
[2025-02-03] MEDS: PEG 3350/Na sulf,bicarb,Cl/KCl oral sol 4 liter bottle PO ONE (16:43)
[2025-02-04] VITALS (13 sets, daily range): BP systolic 131–170; BP diastolic 69–98; PULSE 62–85; RESP 11–19; TEMP 97–98.6; O2SAT 94–100
[2025-02-04 07:38] LABS: MEAN PLATELET VOLUME 8.5 FL (7.4-10.4); RED CELL DISTRIBUTION WIDTH 13.8 % (11.5-14.5)
[2025-02-04 08:00] LABS: CREATININE 0.61 MG/DL (0.40-0.90); TOTAL CARBON DIOXIDE 34.8 MMOL/L (24-32); eCRCL 87 ML/MIN; eGFR > 90 ML/MIN
[2025-02-04] MEDS: potassium Cl 40MEQ/1/2NS 520ml 520 ML IV PRN (09:09)
[2025-02-04] MEDS ORDERED: midazolam 1 mg/ML 2ml injection ONE (09:32)
[2025-02-04] MEDS ORDERED: propofol inj 20 ML IV ONE (09:41)
--- NOTE | 2025-02-04 11:16 | PROGRESS NOTE ---
Daily Progress Note Providers to CC ~ Antibiotic Timeout Antibiotic Ordered?: No Subjective No acute events overnight. Patient examined at bedside. No new complaints, not in acute distress. Patient denies chest pain, sob, palpitations, abdominal pain, n/v/d. Vss, labs unremarkable. EGD on 02/03 LA grade B reflux otitis without active bleeding. Colonoscopy attempted today however due to incomplete bowel prep, rescheduled to tomorrow. 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 Brewster -follow repeat lactic acid, repeat BMP -02/03: normalized lactic acid, bicarb, anion gap. EGD today LA grade B reflux esophagitis without active bleeding, colonoscopy tomorrow. -02/04: Colonoscopy attempted today however due to incomplete bowel prep, rescheduled to tomorrow. DVT/VTE prophylaxis: SCDs Code status: Full code Date of Service: Feb 04, 2025 Billing Provider: GOYO GARCIA Common Visit Codes: [id number] INP/OBS CARE(HIGH) GOYO GARCIA Feb 04, 2025 11:16
--- NOTE | 2025-02-04 12:05 | PROGRESS NOTE- Residence ---
Progress Note - Resident Providers to CC Resident Creating Document: JUAN RAMON DAMON RES ~ Antibiotic Timeout Antibiotic Ordered?: No Subjective Patient was seen and examined at bedside. Patient denies vomiting of blood after admitted to hospital. No acute overnight events. Patient planned for colonoscopy today. Patient denies any concerns or complaints at that moment Objective Vital Signs Date Time Temp Pulse Resp B/P (MAP) Pulse Ox O2 Delivery O2 Flow Rate FiO2 02/04/25 10:52 98.6 65 18 161/98 (119) 98 Room Air 02/04/25 10:38 0.0 Result Diagram: 02/04/2562702/04/25627 Awake , alert and oriented to time,place, person, not in distress HEENT: Atraumatic, normocephalic, PERRLA, EOMI, anicteric sclera ; pink conjunctiva, moist mucos membranes Neck: Trachea midline. Supple, normal range of motion, no JVD, no lymphadenopathy Chest and Respiratory: Equal breath sounds bilaterally, no tachypnea, wheezing, ronchi,rubs .Chest wall is symmetric and without deformity. Cardiac: S1, S2 heard, rate and rhythm are normal, no murmurs heard. Abdomen: Soft, No tenderness, No guarding or rigidity, Whitaker's sign negative. normal bowel sounds x4 quadrant, no hepatosplenomegaly MSK: Range of motion of all extremities are normal. There is no joint pain or joint swelling or joint erythema. There is no muscle pain or tenderness or swelling. Extremities: warm, well-perfused, No cyanosis, clubbing, 2+ pulses felt Neurological: Speech is clear, alert, and oriented x 4. No sensory or motor deficits. Cranial nerves II-XII intact. Skin: Warm and dry Psychiatry: Affect and mood are normal Assessment Assessment A 64 years old female patient admitted with coffee-ground emesis possibly secondary to GI bleed. Patient planned for endoscopy today followed by colonoscopy tomorrow. Plan Plan Hematemesis Reflux esophagitis without bleeding Hx reflux esophagitis, pre-pyloric antral ulceration, duodenitis EGD in december 2024 showed ulcer in the stomach H&H are 10.8 and 31.0 Patient is hemodynamically stable Monitor H&H, transfuse PRBC if hemoglobin level is less than 7 Started on IV Protonix 40 mg b.i.d. daily Continue IV fluids IV Zofran 4 mg q.6h p.r.n. EGD showed: LA grade B reflux esophagitis with no bleeding Congested, discolored, erythematous, eroded, granular and petechial mucosa in the antrum and pre-pyloric region of the stomach, biopsied.Awaiting pathology results Normal duodenum Colonoscopy: Preparation of the colon was poor. Stool in the rectum and in the sigmoid colon Repeat colonoscopy tomorrow because the bowel preparation was poor Alcoholic ketoacidosis Metabolic acidosis, AGMA Alcohol intoxication Alcohol withdrawal Dehydration HTN -continue management of all other comorbid conditions as per primary hospitalist team Code status: Full code DVT prophylaxis : SCD GI prophylaxis: IV protonix Line/tube: PIV Diet: Clear liquid diet, NPO after midnight, scheduled for colonoscopy tomorrow Disposition: Repeat colonoscopy tomorrow because the bowel preparation was poor Lakeshia Damon MD Internal Medicine Resident, PGY 1 Date of Service: Feb 04, 2025 Billing Provider: CASSANDRA SANTIAGO MD, SUNIL KUMAR, RES Feb 04, 2025 12:05
[2025-02-04] MEDS: PEG 3350/Na sulf,bicarb,Cl/KCl oral sol 4 liter bottle PO ONE (12:35)
[2025-02-04 21:03] LABS: CREATININE 0.81 MG/DL (0.40-0.90); TOTAL CARBON DIOXIDE 31.6 MMOL/L (24-32); eCRCL 66 ML/MIN; eGFR 71 ML/MIN
[2025-02-04] MEDS: potassium Cl 20 mEq SR tablet PO PRN (22:14)
[2025-02-05] VITALS (19 sets, daily range): BP systolic 135–186; BP diastolic 70–105; PULSE 58–81; RESP 11–18; TEMP 97.2–97.6; O2SAT 95–100
[2025-02-05] MEDS: HYDROcodone/acetaminophen 5mg/325mg tablet PO PRN (02:34)
[2025-02-05 06:30] LABS: MEAN PLATELET VOLUME 8.7 FL (7.4-10.4); RED CELL DISTRIBUTION WIDTH 13.6 % (11.5-14.5)
[2025-02-05] MEDS: normal saline 1000ml 1,000 ML IV SCH (08:11)
[2025-02-05 10:50] LABS: CREATININE 0.83 MG/DL (0.40-0.90); TOTAL CARBON DIOXIDE 31.2 MMOL/L (24-32); eCRCL 64 ML/MIN; eGFR 69 ML/MIN
[2025-02-05] MEDS ORDERED: PANT40TA54 PO (11:43)
[2025-02-05] MEDS ORDERED: fentaNYL/PF 50MCG/1 ML 2ML syringe ONE (15:28)
[2025-02-05] MEDS ORDERED: MIDAZolam 1 MG/ML 5ML VIAL ONE (15:28)
--- NOTE | 2025-02-05 15:30 | PROGRESS NOTE- Residence ---
Progress Note - Resident Providers to CC Resident Creating Document: JUAN RAMON DAMON RES ~ Antibiotic Timeout Antibiotic Ordered?: No Subjective Patient was seen and examined at bedside. Patient denies vomiting of blood after admitted to hospital. No acute overnight events. Patient denies any concerns or complaints at that moment. Patient planned for colonoscopy today. Objective Vital Signs Date Time Temp Pulse Resp B/P (MAP) Pulse Ox O2 Delivery O2 Flow Rate FiO2 02/05/25 12:53 19 02/05/25 11:00 97.2 77 163/89 (113) 97 Room Air 02/04/25 10:38 0.0 Result Diagram: 02/05/2552102/05/25521 Awake , alert and oriented to time,place, person, not in distress HEENT: Atraumatic, normocephalic, PERRLA, EOMI, anicteric sclera ; pink conjunctiva, moist mucos membranes Neck: Trachea midline. Supple, normal range of motion, no JVD, no lymphadenopathy Chest and Respiratory: Equal breath sounds bilaterally, no tachypnea, wheezing, ronchi,rubs .Chest wall is symmetric and without deformity. Cardiac: S1, S2 heard, rate and rhythm are normal, no murmurs heard. Abdomen: Soft, No tenderness, No guarding or rigidity, Whitaker's sign negative. normal bowel sounds x4 quadrant, no hepatosplenomegaly MSK: Range of motion of all extremities are normal. There is no joint pain or joint swelling or joint erythema. There is no muscle pain or tenderness or swelling. Extremities: warm, well-perfused, No cyanosis, clubbing, 2+ pulses felt Neurological: Speech is clear, alert, and oriented x 4. No sensory or motor deficits. Cranial nerves II-XII intact. Skin: Warm and dry Psychiatry: Affect and mood are normal Plan Plan Hematemesis Reflux esophagitis without bleeding Hx reflux esophagitis, pre-pyloric antral ulceration, duodenitis Normocytic Normochromic anemia EGD in december 2024 showed ulcer in the stomach H&H are 10.8 and 31.0 Patient is hemodynamically stable Monitor H&H, transfuse PRBC if hemoglobin level is less than 7 Continue on IV Protonix 40 mg b.i.d. daily Continue IV fluids IV Zofran 4 mg q.6h p.r.n. EGD showed: LA grade B reflux esophagitis with no bleeding Congested, discolored, erythematous, eroded, granular and petechial mucosa in the antrum and pre-pyloric region of the stomach, biopsied.Awaiting pathology results Normal duodenum Colonoscopy (02/04/25): Preparation of the colon was poor. Stool in the rectum and in the sigmoid colon Repeated colonoscopy(02/05/25): stricture in the sigmoid colon. biopsied. Awaiting pathology results Repeat colonoscopy is not recommended for screening purposes. Alcoholic ketoacidosis Metabolic acidosis, AGMA Alcohol intoxication Alcohol withdrawal Dehydration HTN -continue management of all other comorbid conditions as per primary hospitalist team Code status: Full code DVT prophylaxis : SCD GI prophylaxis: IV protonix Line/tube: PIV Disposition: EGD showed reflux esophagitis. Stricture in sigmoid colon on colonoscopy. Repeat colonoscopy is not recommended for screening purposes. Lakeshia Damon MD Internal Medicine Resident, PGY 1 Date of Service: Feb 05, 2025 Billing Provider: CASSANDRA SANTIAGO MD, SUNIL KUMAR, RES Feb 05, 2025 15:30
--- NOTE | 2025-02-05 17:27 | DISCHARGE SUMMARY ---
Discharge Summary Providers to CC ~ Discharge Summary Admission Diagnosis: alcoholic ketoacidosis, UGIB Hospital Course DATE OF ADMISSION: 02/02/25 DATE OF DISCHARGE: 02/05/25 Discharge Diagnosis\Comment: Alcoholic ketoacidosis Metabolic acidosis, AGMA Alcohol intoxication Alcohol withdrawal Dehydration UGIB likely 2/2 esophagitis Prerenal ULISES likely 2/2 dehydration/vasomotor nephropathy- not POA Anemia, normocytic HTN Hx reflux esophagitis, pre-pyloric antral ulceration, duodenitis Operations\Procedures: EGD Colonoscopy Consultants: GI Terrell Velasco Complications: None Condition on DC: Stable New Medications: Pantoprazole Sodium (Pantoprazole Sodium) 40 Mg Tablet.dr 40 MG PO DAILY for 30 Days, #30 TAB.SR Continued Medications: Amitriptyline Hcl (Amitriptyline Hcl) 25 Mg Tablet 1-2 TAB PO HS Amlodipine Besylate (Amlodipine Besylate) 5 Mg Tablet 5 MG PO DAILY for 30 Days, #30 TAB Amlodipine Besylate (Amlodipine Besylate) 5 Mg Tablet 1 TAB PO DAILY Cholecalciferol (Vitamin D3) (Vitamin D3) 25 Mcg (1000 Unit) Tablet 1 TAB PO DAILY Ferrous Sulfate (Ferrous Sulfate) 325 Mg (65 Mg Iron) Tablet 325 MG PO DAILY for 30 Days, #30 TAB Folic Acid* (Folic Acid*) 0.4 Mg Tablet 1 TAB PO HS, TAB Gabapentin (Gabapentin) 100 Mg Capsule 3 CAP PO TID, CAP 0 Refills Lisinopril (Lisinopril) 20 Mg Tablet 20 MG PO DAILY for 30 Days, #30 TAB Magnesium Oxide (Magnesium) 500 Mg Capsule 500 MG PO DAILY for 10 Days, #10 CAP Multivitamin with Folic Acid (Thera Tablet) 400 Mcg Tablet 1 EACH PO Q24H for 30 Days, #30 TAB Pantoprazole Sodium (Pantoprazole Sodium) 40 Mg Tablet.dr 40 MG PO DAILY for 30 Days, #30 TAB.SR Prazosin Hcl (Prazosin Hcl) 1 Mg Capsule [thiamine tablet] () 100 MG TABLET 100 MG PO DAILY for 30 Days, #30 Discontinued Medications: Ferrous Sulfate (Ferrous Sulfate) 325 Mg (65 Mg Iron) Tablet 1 TAB PO DAILY Folic Acid* (Folic Acid*) Y Tab 1 TAB PO DAILY Gabapentin (Gabapentin ER) 300 Mg Tab.er.24h Multivitamin (Multivitamin) 1 Each Tablet 1 TAB PO DAILY Discharge Summary: History of Present Illness Cara Amador is a 64-year-old female with past medical history significant for chronic alcoholism with multiple relapses reflux esophagitis, pre-pyloric antral ulceration and duodenitis who presented to the ED with chief complaint of coffee-ground emesis x 2 days. Last alcohol intake was this morning. Patient denies prior [place]/CAD, CVA, cardiac arrhythmia, DVT/PE, or GIB. Patient denies chest pain, palpitations, shortness of breath, abdominal pain, diarrhea. Patient is to be admitted for further workups and treatment. Hospital Course Diagnostic findings were notable for positive alcohol level, anion gap metabolic acidosis with bicarb at 14, elevated lactic acid at 7.1. Patient was treated with thiamine, fluid resuscitation followed by D5 w/0.45% NS, PPI, alcohol withdrawal protocol which closed anion gap, resolved acidosis and normalized elevated lactic acid. Case was consulted with GI Dr. Brewster and patient underwent EGD with findings notable for LA grade B reflux esophagitis without active bleeding. Colonoscopy was delayed by one day due to bowel prep being complete. Colonoscopy results were unremarkable and revealed stricture in sigmoid colon which was biopsied. Patient did not experience further complications throughout the entire hospital stay and remained clinically and hemodynamically stable. Patient was seen and examined on the day of discharge. On day of discharge, vss and labs unremarkable. All labs, diagnostic workups, discharge plan discussed with patient in details during visit before discharge. All questions and concerns answered to the best of my professional knowledge. Patient is to be discharged to home to self and to follow up with PCP and Dr. Brewster within 2 weeks. Physical Exam General: Generalized weakness, A&Ox 3, NAD HEENT: Normocephalic, PERRLA Neck: Supple, trachea midline, no JVD Chest: Clear to auscultation bilaterally Cardiovascular: RRR, S1&S2 GI: Soft and nontender Extremities: No cyanosis/clubbing/or edema SAS ARCHITECT: CN II-XII intact, no focal deficits Musculoskeletal: No paraspinal muscle tenderness, no muscle spasm Skin: Warm and intact *Problems/Diagnosis: (1) Alcohol intoxication Status: Acute (2) Alcoholic ketoacidosis Status: Acute Total Time Spent on D/C: > 30 Minutes Date of Service: Feb 05, 2025 Billing Provider: GOYO GARCIA Common Visit Codes: 38403-ROS/OBS DISCH DAY >30min GOYO GARCIA [employer]PER[employer] Feb 05, 2025 17:27
--- NOTE | 2025-02-09 11:00 | PATHOLOGY REPORT ---
[facility] [address] [place] [address] SURGICAL PATHOLOGY REPORT CaseNumber: [id number] Surgeon:Terrell Brewster M.D. CLINICAL INFORMATION CLINICAL INFORMATION: Hematochezia. DIAGNOSIS DIAGNOSIS: COLON, SIGMOID; BIOPSY - BENIGN COLONIC MUCOSA WITH CHRONIC INFLAMMATION. - NEGATIVE FOR DYSPLASIA OR MALIGNANCY. MICROSCOPIC DESCRIPTION MICROSCOPIC DESCRIPTION: A single H&E stained slide of the colon biopsy is reviewed. The slide shows benign colonic mucosa with increased groups of lymphocytes in the lamina propria. There is no dysplasia or malignancy identified. GROSS DESCRIPTION GROSS DESCRIPTION: Received in a container of formalin labeled with the patient's name, number, and identified per op report as "sigmoid colon" is a 0.5 x 0.2 x 0.1 cm piece of mohr tissue. The specimen is entirely submitted as A1. The time at which the specimen was removed was 1540. The time at which the specimen was placed in formalin was 1540. Electronically signed by: Emiliano Mosley, 02/09/2025 10:20:00 AM
== END 2025-02-05 18:14 | disposition home or self-care (01) | DRG 368 ==
LOC: ER 13:14 → ED HOLD 15:31 → UNDOADMIN 15:31 → ED HOLD 17:40 → PCU 3S 19:11
PROVIDERS: ADMIT Nurse Practitioner Family; ATTEND Nurse Practitioner Family
PROC: 0DB78ZX Excision of Stomach, Pylorus, Via Natural or Artificial Opening Endoscopic, Diagnostic (ICD-10-PCS; principal; 2025-02-03 12:12)
PROC: 0DJD8ZZ Inspection of Lower Intestinal Tract, Via Natural or Artificial Opening Endoscopic (ICD-10-PCS; 2025-02-04)
PROC: 0DBN8ZX Excision of Sigmoid Colon, Via Natural or Artificial Opening Endoscopic, Diagnostic (ICD-10-PCS; 2025-02-05)
DX: K21.01 Gastro-esophageal reflux disease with esophagitis, with bleeding (principal); N17.0 Acute kidney failure with tubular necrosis; F10.239 Alcohol dependence with withdrawal, unspecified; K56.699 Other intestinal obstruction unspecified as to partial versus complete obstruction; E87.29 Other acidosis; E86.0 Dehydration; I10 Essential (primary) hypertension; D64.9 Anemia, unspecified; F10.229 Alcohol dependence with intoxication, unspecified; E87.6 Hypokalemia; Z87.11 Personal history of peptic ulcer disease; Z79.899 Other long term (current) drug therapy; Z88.8 Allergy status to other drugs, medicaments and biological substances; Z87.891 Personal history of nicotine dependence; Y92.89 Other specified places as the place of occurrence of the external cause
CPT/HCPCS: 36415; 43239; 45330; 45380; 80048; 80053; 80305; 80320; 81001; 81025; 82948; 83036; 83605; 83690; 83735; 85025; 87081; 88305; 88342; 93005; 96365; 96366; 96375; 99152; 99153; 99285; A4615; A4620; A6449; G0378; J1815; J2250; J2270; J2405; J2470; J2704; J3010; J3411; J3480; J3490; J7030; J7070; J7120

== ENCOUNTER 2025-02-10 08:58 | Emergency (ER) | payer MEDICARE, MEDICAID ==
[~2025-02-10] VITALS: Ht 167.6 cm; Wt 74.0 kg
[~2025-02-10 08:58] MED LIST changes: +AMIT25TA22 PO; +AMLO5TAB16 PO; +CHOL100017 PO; +PRAZ1CAP5
[2025-02-10] MEDS: normal saline 1000ml 1,000 ML IV ONE (09:23)
[2025-02-10 09:30] VITALS: TEMP 98.7
--- NOTE | 2025-02-10 09:57 | RADIOLOGY REPORT ---
EXAM: CT CT HEAD INDICATION: fall, intoxicated TECHNIQUE: CT of the head without intravenous contrast. Radiation Dose : 1. Head: CT Dose: CTDI volume is 55 mGy. Dose-length product is 995 mGy*cm The dose indicators for CT are the volume Computed Tomography (CT) Dose Index (CTDIvol) and the Dose Length Product (DLP), and are measured in units of mGy and mGy-cm, respectively. These indicators are not patient dose, but values generated from the CT scanner acquisition factors. The report includes radiation exposure data for exposures received during this examination. COMPARISON: None FINDINGS: There is no evidence of acute intracranial hemorrhage, extra-axial collection, mass effect, midline shift, herniation or hydrocephalus. The ventricles, sulci and cisterns are age appropriate. The sapp-white differentiation is intact. Patchy periventricular and subcortical white matter hypoattenuation is nonspecific but may be related to small vessel ischemic disease. The visualized paranasal sinuses and mastoid air cells are clear. The surrounding soft tissues and osseous structures are unremarkable. IMPRESSION: No acute intracranial abnormality. Radiation optimization: All CT scans at this facility use at least one of these dose optimization techniques: automated exposure control mA and/or kV adjustment per patient size (includes targeted exams where dose is matched to clinical indication) or iterative reconstruction.
[2025-02-10 10:02] LABS: MEAN PLATELET VOLUME 8.9 FL (7.4-10.4); RED CELL DISTRIBUTION WIDTH 14.4 % (11.5-14.5)
--- NOTE | 2025-02-10 10:13 | RADIOLOGY REPORT ---
EXAM: CT CT CERVICAL SPINE HISTORY: cervical pain after fall COMPARISON: CT CT HEAD on DOS: 02/10/25 CTDIvol 21 mGy, DLP 516 mGy*cm. TECHNIQUE: Multiple axial CT images of the spine were obtained using bone algorithm. Axial and coronal reformatting was done. Bone and soft tissue windows were reviewed. FINDINGS: No evidence of definite acute fracture, spinal dislocation, or significant appearing acute subluxation is seen. IMPRESSION: No definite CT evidence of acute fracture or dislocation of the bony cervical spine.
[2025-02-10 10:55] LABS: CREATININE 0.72 MG/DL (0.40-0.90); TOTAL CARBON DIOXIDE 27.0 MMOL/L (24-32); eCRCL 74 ML/MIN; eGFR 82 ML/MIN
--- NOTE | 2025-02-10 11:34 | Physician Documentation ---
History of Present Illness ~ Chief Complaint: ETOH Stated Complaint: FALL Time Seen by MD: 09:04 Primary Medical Doctor: Lien JAI 64 year old female found down and intoxicated, possibly having fallen but unwitnessed, BIB EMS. On arrival she is heavily intoxicated but moving all four extremities, no external signs trauma. Denies other medical complaints but history is difficult 2/2 intoxication. Tetanus within 5 years?: Yes Medication Reconciliation Allergies: Coded Allergies: nabumetone (Verified Allergy, Unknown, 02/02/25) Scheduled Amitriptyline Hcl (Amitriptyline Hcl), 1-2 TAB PO HS, (Reported) Amlodipine Besylate (Amlodipine Besylate), 5 MG PO DAILY Amlodipine Besylate (Amlodipine Besylate), 1 TAB PO DAILY, (Reported) Cholecalciferol (Vitamin D3) (Vitamin D3), 1 TAB PO DAILY, (Reported) Ferrous Sulfate (Ferrous Sulfate), 325 MG PO DAILY Folic Acid* (Folic Acid*), 1 TAB PO HS, (Reported) Gabapentin (Gabapentin), 3 CAP PO TID, (Reported) Lisinopril (Lisinopril), 20 MG PO DAILY Magnesium Oxide (Magnesium), 500 MG PO DAILY Multivitamin with Folic Acid (Thera Tablet), 1 EACH PO Q24H Pantoprazole Sodium (Pantoprazole Sodium), 40 MG PO DAILY Pantoprazole Sodium (Pantoprazole Sodium), 40 MG PO DAILY [thiamine tablet], 100 MG PO DAILY Miscellaneous Medications Prazosin Hcl (Prazosin Hcl), (Reported) Discontinued Medications Ferrous Sulfate (Ferrous Sulfate), 1 TAB PO DAILY, (Reported) Folic Acid* (Folic Acid*), 1 TAB PO DAILY, (Reported) Gabapentin (Gabapentin ER), (Reported) Multivitamin (Multivitamin), 1 TAB PO DAILY, (Reported) Past Medical History Patient History: FH: stomach cancer MOTHER, , Age: 60 years and older Review of Systems All Other Systems at this time: Reviewed and Negative Physical Exam Vital Signs: RN Vital Signs have been reviewed: Yes, Temperature: 97.8, Source: Oral, Heart Rate: 83, Respiratory Rate: 14, BP: 137/85, Pulse Oximetry: 90, Weight: 74.000 Oxygen Flow Rate: 0 Physical Exam HEENT: PERRL, moist oral mucosa, EOMI Pulmonary: No respiratory distress Cardiac: RRR, no murmur, rub or gallop GI: nondistended, soft, nontender, no guarding, no rebound MSK: no deformity Skin: w/d/i, no rash Neuro: somnolent but arousable, moving all four extremities Progress Results/Orders Results/Orders Orders - OVIDIO WATSON MD Ct Head (02/10/25 09:04) Ct Cervical Spine (02/10/25 09:16) Completed Orders - OVIDIO WATSON MD Cbc/Diff (02/10/25 09:04) Ct Head (02/10/25 09:04) Normal Saline 1000ml (0.9% Sodium Chlori (02/10/25 09:05) Ct Cervical Spine (02/10/25 09:16) CMP (02/10/25 10:04) Medications Received in ER Medications (Trade) Dose Ordered Sig/Tomás Route PRN Reason Start Time Stop Time Status Last Admin Dose Admin Sodium Chloride 1,000 ml @ 1,000 mls/hr ONCE ONCE IV 02/10/25 09:05 02/10/25 10:04 DC 02/10/25 09:23 1,000 MLS/HR Vital Signs 02/10/25 02/10/25 09:01 09:12 Temp 97.8 Pulse 83 Resp 16 14 B/P (MAP) 137/85 Pulse Ox 90 O2 Flow Rate 0 Laboratory Tests Test 02/10/25 09:32 02/10/25 10:17 White Blood Count 5.6 Red Blood Count 4.46 Hemoglobin 13.6 Hematocrit 40.3 Mean Corpuscular Volume 90.4 Mean Corpuscular Hemoglobin 30.5 Mean Corpuscular Hemoglobin Concent 33.7 Red Cell Distribution Width 14.4 Platelet Count 228 Mean Platelet Volume 8.9 Neutrophils (%) (Auto) 58.5 Lymphocytes (%) (Auto) 37.3 Monocytes (%) (Auto) 3.3 Eosinophils (%) (Auto) 0.5 Basophils (%) (Auto) 0.4 Neutrophils # (Auto) 3.3 Lymphocytes # (Auto) 2.1 Monocytes # (Auto) 0.2 Eosinophils # (Auto) 0.0 Basophils # (Auto) 0.0 CBC Comment Chemistry Comments Sodium Level 147 H Potassium Level 3.3 L Chloride Level 108 H Carbon Dioxide Level 27.0 Anion Gap 12 Blood Urea Nitrogen 13 Creatinine 0.72 Estimated GFR/1.73 m2 82 BUN/Creatinine Ratio 18.1 Glucose Level 101 Calcium Level 8.5 Total Bilirubin 0.2 Aspartate Amino Transf (AST/SGOT) 32 Alanine Aminotransferase (ALT/SGPT) 48 Alkaline Phosphatase 96 Total Protein 7.9 Albumin 4.0 Globulin 3.9 Albumin/Globulin Ratio 1.0 L Medical Decision Making Findings 64 year old female with apparent alcohol intoxication and having fallen. CT head interpreted by me demonstrated no mass, shift, or bleed. Labs demonstrated hypernatremia. Metabolized, improved significantly on reevaluation, will discharge with return precautions. Differential Dx:Considerations: Intoxication - ETOH, Intoxication - other drug, Skull fracture, Closed head injury, Hematoma, Laceration, Encephalopathy Departure Disposition: 01 HOME / SELF CARE / HOMELESS Impression: Primary Impression: Alcohol intoxication Condition: Stable Discharge Instructions: Alcohol Intoxication Referrals: NO PRIMARY CARE PROVIDER (PCP) Education Educated: Patient Educated regarding: diagnosis, treatment, prognosis, need for follow up Signature Scribe Signature: . Attestation: . OVIDIO WATSON MD Feb 10, 2025 11:34
[2025-02-10 12:20] VITALS: PULSE 97; O2SAT 98
[2025-02-10 13:11] VITALS: BP 137/99; RESP 20
== END 2025-02-10 13:10 | disposition home or self-care (01) ==
LOC: ER 08:59
DX: F10.129 Alcohol abuse with intoxication, unspecified (principal); R51.9 Headache, unspecified; Z88.8 Allergy status to other drugs, medicaments and biological substances; Y90.9 Presence of alcohol in blood, level not specified
CPT/HCPCS: 36415; 70450; 72125; 80053; 85025; 96360; 99285; A4615; J7030

== ENCOUNTER 2025-02-11 12:32 | Emergency (ER) | payer MEDICARE, MEDICAID ==
[~2025-02-11] VITALS: Ht 170.2 cm; Wt 65.9 kg
[2025-02-11] MEDS ORDERED: normal saline 1000ml 1,000 ML IV ONE (12:35)
--- NOTE | 2025-02-11 12:41 | Physician Documentation ---
History of Present Illness ~ Stated Complaint: ETOH Time Seen by MD: 12:35 Primary Medical Doctor: Lien VERGARA This is a 64-year-old female very well known to [facility], prolific alcoholic, status post failed rehab, drank a 5th of vodka earlier today and subsequently fell down. She hit her head. Her neighbor called the ambulance. She complains of the headache and neck pain. The particular palliating or aggravating factors. She claims that she is not a drunk. Denies any chest pain or difficulty breathing. Denies any nausea, vomiting, diarrhea, abdominal pain. She also felt it is very important for us to know that her daughter in [place] is involved with a cartel that pushes cocaine. Tetanus within 5 Years?: Yes Medication Reconciliation Allergies: Coded Allergies: nabumetone (Verified Allergy, Unknown, 02/02/25) Scheduled Amitriptyline Hcl (Amitriptyline Hcl), 1-2 TAB PO HS, (Reported) Amlodipine Besylate (Amlodipine Besylate), 5 MG PO DAILY Amlodipine Besylate (Amlodipine Besylate), 1 TAB PO DAILY, (Reported) Cholecalciferol (Vitamin D3) (Vitamin D3), 1 TAB PO DAILY, (Reported) Ferrous Sulfate (Ferrous Sulfate), 325 MG PO DAILY Folic Acid* (Folic Acid*), 1 TAB PO HS, (Reported) Gabapentin (Gabapentin), 3 CAP PO TID, (Reported) Lisinopril (Lisinopril), 20 MG PO DAILY Magnesium Oxide (Magnesium), 500 MG PO DAILY Multivitamin with Folic Acid (Thera Tablet), 1 EACH PO Q24H Pantoprazole Sodium (Pantoprazole Sodium), 40 MG PO DAILY Pantoprazole Sodium (Pantoprazole Sodium), 40 MG PO DAILY [thiamine tablet], 100 MG PO DAILY Miscellaneous Medications Prazosin Hcl (Prazosin Hcl), (Reported) Discontinued Medications Ferrous Sulfate (Ferrous Sulfate), 1 TAB PO DAILY, (Reported) Folic Acid* (Folic Acid*), 1 TAB PO DAILY, (Reported) Gabapentin (Gabapentin ER), (Reported) Multivitamin (Multivitamin), 1 TAB PO DAILY, (Reported) Past Medical History Patient History: FH: stomach cancer MOTHER, , Age: 60 years and older Review of Systems ROS 10 point review of systems was performed and unless noted above in HPI is negative for acute process/complaint. Physical Exam Physical Exam GENERAL: Awake, alert, oriented, GCS 15, no apparent distress, non-toxic appearing, answers questions, follows commands appropriately. Examined immediately upon arrival in bed 2. HEENT: Atraumatic, normocephalic, pupils equal, extraocular muscles intact, sclerae anicteric, mucus membranes moist, oropharynx is clear, no stridor. NECK: supple, full active range of motion, trachea midline, no thyromegaly, no lymphadenopathy, no JVD. CARDIOVASCULAR: Slightly tachycardic and regular rate/rhythm, no m urmurs/gallops/rubs, Pulses are 2+ in all extremities and symmetric. Capillary refill less than 2 seconds. PULMONARY: Nonlabored, good air movement ,no respiratory distress, speaking in full sentences, clear to auscultation bilaterally, no wheezing, no ronchi, no rales, no accessory muscle use. GASTROINTESTINAL: Soft, non-tender, non-distended, normal active bowel sounds, no organomegaly, no pulsatile masses, no CVA tenderness. NEUROLOGIC: Lucid with normal mental status. Normal facial symmetry. Moves all extremities symmetrically and with purpose. No truncal ataxia. Speech is slurred consistent with alcohol intoxication, no focal deficits appreciated. MUSCULOSKELETAL: There is full range of motion of all extremities. There is no joint pain or joint swelling or joint erythema. There is no muscle pain or tenderness or swelling. EXTREMITIES: warm, well-perfused, no cyanosis, no clubbing, no edema, no acute deformities. Skin: warm, dry, no rashes or lesions, no jaundice, no petechiae orpurpura. No ecchymosis. PSYCHIATRIC: Somewhat hostile affect, poor insight, poor concentration. Focused exam: [] Progress Results/Orders Results/Orders Orders - MITESH STEWART DO Ethanol (02/11/25 12:35) Drug Screen, Urine (02/11/25 12:35) Normal Saline 1000ml (0.9% Sodium Chlori (02/11/25 12:35) Ct Cervical Spine (02/11/25 12:35) Cbc/Diff (02/11/25 12:35) Pt Inr (02/11/25 12:35) PTT (02/11/25 12:35) Urinalysis, Cult If Indicated (02/11/25 12:35) MG (02/11/25 12:35) Ct Head (02/11/25 12:35) CMP (02/11/25 12:35) Straight Cath For Urine Sample (02/11/25 12:35) Vital Signs 02/11/25 02/11/25 02/11/25 12:34 12:39 12:42 Temp 97.7 97.7 Pulse 94 105 Resp 18 18 B/P (MAP) 176/96 158/84 (108) Pulse Ox 94 94 O2 Flow Rate 0 0 Medical Decision Making Findings Facility Status: ED Holds, RME process The plan was discussed with the patient, who demonstrates clear understanding of the plan and is in agreement with the plan unless otherwise noted in the chart. All questions have been answered, all concerns were addressed unless otherwise documented. I was available throughout their ED stay for frequent reassessment and questions. Differential Diagnoses (considered and possible or likely): [Alcoholism, alcohol intoxication, ground level fall, acute traumatic injury, closed head injury, concussion, subdural, subarachnoid, dehydration, electrolyte derangement] ??Differential Diagnoses (considered and unlikely, not requiring evaluation currently): [No evidence of lateralizing signs to suspect a stroke] MDM Data Please see [facility] for the following: Independent Historians and external Records Review. Historian: [Patient] Independent Historians: ?[EMS, record review] Medication Management: [Reviewed medication list] Social History and determinants: [Reviewed] Please see the body of the note for the following: Any independent interpretations of ECG, imaging studies. All vitals signs/haemodynamics, ordered tests were independently reviewed and interpreted by myself. Nursing triage complaint and vitals reviewed, additional nursing notes were reviewed as available and I agree unless otherwise noted or documented in contradiction in the chart Vital Signs: Independently reviewed Labs: Independently interpreted Imaging: Independently interpreted Old Medical Records: Independently reviewed, see [facility] for relevant summary and information Pulse Oximetry: [95%] interpreted as [normal on room air] by me [Agricultural Agent: [Regular Rate, Regular rhythm, no ectopy, NSR] reviewed and interpreted by me] Additionally notably showing: [Hemodynamically stable on presentation] Tests considered but not ordered include: [Advanced imaging of her head and neck was ordered, however the patient left against medical advice] Social Determinants of Health Impact: [place] [place] to healthcare due to below par ratio of patient to medical providers. [] Comorbid Conditions Impacting Present Evaluation and Care/Treatment: [Alcoholism] Management Discussions with other Healthcare Providers: [Not applicable] Treatment and Disposition Medication Management (Given or considered): []. See EMR for details Consideration for Hospitalization/Escalation/Deescalation of Care: Admission for observation has been considered, [however the patient is able to tolerate p.o., their symptoms are controlled, they are able to rely on oral medications, and their chief complaint/diagnosis can be managed on outpatient basis.] ?ED Course:?[Date: Feb 11, 2025 Time: 12:55 the patient became irate. Be amended to leave. She appears to be clinically sober and able to make her own medical decisions. She has a sober ride coming after her. She had leaving against medical advice ] ?Shared decision making:?[] Code status:?FULL Please see the full Electronic Medical Record for full details of nursing documentation, medications list, other records of complete past medical history and conditions, vital signs, laboratory studies, and any radiologic study interpretations by radiologists. Portions of this note were completed using Lumus dictation software and as a result there may exist minor errors in s snowing. I have reviewed elements of past family and social history and agree as included in note. Departure Disposition: LEFT AGAINST MEDICAL ADVICE Impression: Primary Impression: Alcohol intoxication Additional Impressions: Alcohol dependence Dehydration Ground-level fall Acute traumatic pain Closed head injury Neck pain Referrals: NO PRIMARY CARE PROVIDER (PCP) Signature Scribe Signature: No scribe Attestation: This note accurately reflects clinical decisions, work performed by myself, DO PAT Tate NICHOLAS M DO Feb 11, 2025 12:41
[2025-02-11 12:42] VITALS: BP 158/84; PULSE 105; RESP 18; TEMP 97.7; O2SAT 94
== END 2025-02-11 23:43 | disposition left against medical advice (07) ==
LOC: ER 12:32
DX: S09.90XA Unspecified injury of head, initial encounter (principal); F10.229 Alcohol dependence with intoxication, unspecified; E86.0 Dehydration; G89.11 Acute pain due to trauma; M54.2 Cervicalgia; Z88.8 Allergy status to other drugs, medicaments and biological substances; W18.30XA Fall on same level, unspecified, initial encounter; Y93.89 Activity, other specified; Y92.89 Other specified places as the place of occurrence of the external cause; Y99.8 Other external cause status; Y90.9 Presence of alcohol in blood, level not specified
CPT/HCPCS: 99283

== ENCOUNTER 2025-02-12 08:47 | Emergency (ER) | payer MEDICARE, MEDICAID ==
[~2025-02-12] VITALS: Ht 170.2 cm; Wt 62.1 kg
--- NOTE | 2025-02-12 09:27 | ELECTROCARDIOGRAPH REPORT ---
[facility] Test Date: 2025-02-12 Test Time: 09:25:53 Pat Name: JANIA MCKINLEY Department: [facility]-ER Patient ID: [id number] Room: Gender: F Gambling Box Person: : [id number] Requested By: LISA LIZARRAGA Order Number: [id number] Reading MD: Dr. Ceasar Romero Measurements Intervals [place] Rate: 102 P: 78 VT: 151 QRS: -37 QRSD: 91 T: 73 QT: 355 QTc: 463 Interpretive Statements Sinus tachycardia Left axis deviation Low voltage, precordial leads Borderline ST depression, lateral leads ST elevation, consider inferior injury Electronically Signed On 02-17-2025 18:50:[address] Ceasar Romero Please click the below link to view image of tracing.
[2025-02-12 09:37] LABS: MEAN PLATELET VOLUME 8.6 FL (7.4-10.4); RED CELL DISTRIBUTION WIDTH 14.8 % (11.5-14.5)
[2025-02-12 09:48] LABS: CREATININE 0.65 MG/DL (0.40-0.90); TOTAL CARBON DIOXIDE 18.4 MMOL/L (24-32); eCRCL 85 ML/MIN; eGFR > 90 ML/MIN
--- NOTE | 2025-02-12 09:51 | Physician Documentation ---
History of Present Illness ~ Chief Complaint: ETOH Stated Complaint: ETOH Time Seen by MD: 09:35 Primary Medical Doctor: Namehaus Source: patient (13), old records Mode of Arrival: EMS, Stretcher HPI Patient comes in reporting she drank too much. She is unable to give a reason why she decided to come to the ED, has been seen numerous times previously including two prior visits this last week, always for the same. She does report occasional vomiting, denies any hematemesis or melena, denies any abdominal pain or any other symptoms at this time, reports that she just needs some water. Tetanus within 5 years?: Yes Medication Reconciliation Allergies: Coded Allergies: nabumetone (Verified Allergy, Unknown, 02/02/25) Scheduled Amitriptyline Hcl (Amitriptyline Hcl), 1-2 TAB PO HS, (Reported) Amlodipine Besylate (Amlodipine Besylate), 1 TAB PO DAILY, (Reported) Cholecalciferol (Vitamin D3) (Vitamin D3), 1 TAB PO DAILY, (Reported) Ferrous Sulfate (Ferrous Sulfate), 325 MG PO DAILY Folic Acid* (Folic Acid*), 1 TAB PO HS, (Reported) Gabapentin (Gabapentin), 3 CAP PO TID, (Reported) Lisinopril (Lisinopril), 20 MG PO DAILY Multivitamin with Folic Acid (Thera Tablet), 1 EACH PO Q24H Pantoprazole Sodium (Pantoprazole Sodium), 40 MG PO DAILY [thiamine tablet], 100 MG PO DAILY Miscellaneous Medications Prazosin Hcl (Prazosin Hcl), (Reported) Discontinued Medications Amlodipine Besylate (Amlodipine Besylate), 5 MG PO DAILY Discontinued Reason: Other Ferrous Sulfate (Ferrous Sulfate), 1 TAB PO DAILY, (Reported) Folic Acid* (Folic Acid*), 1 TAB PO DAILY, (Reported) Gabapentin (Gabapentin ER), (Reported) Magnesium Oxide (Magnesium), 500 MG PO DAILY Discontinued Reason: Other Multivitamin (Multivitamin), 1 TAB PO DAILY, (Reported) Pantoprazole Sodium (Pantoprazole Sodium), 40 MG PO DAILY Discontinued Reason: Other Past Medical History Past Medical History: GI Bleed, Peptic Ulcer Disease, Anxiety Patient History: FH: stomach cancer MOTHER, , Age: 60 years and older Alcohol Use: Alcoholic Drug Use: none (Denies) Review of Systems All Other Systems at this time: Reviewed and Negative Physical Exam Vital Signs: Temperature: 97.9, Source: Oral, Heart Rate: 113, Respiratory Rate: 18, BP: 99/54, Pulse Oximetry: 99, Weight: 62.100 Oxygen Flow Rate: 0 Physical Exam General: Pt is drowsy but awakens easily to voice, is lucid and answers all questions clearly. Head: Normocephalic and atraumatic. Eyes: Conjunctiva normal. ENT: Mucous membranes dry Neck: Supple. Chest: Clear to auscultation bilaterally, without rales, rhonchi, or wheezes. There is no accessory muscle use or retractions. Cardiac: Regular rate and rhythm without murmurs, gallops or rubs. Palpation of the chest wall is normal. Abd: Soft, nondistended, nontender, with normoactive bowel sounds. No guarding or rebound. Extremities: Within normal limits without cyanosis, clubbing, or edema. Skin: [place], warm and dry with no significant rash appreciated. Neuro: Cranial nerves II-XII grossly intact. Progress Results/Orders Results/Orders Orders - LISA LIZARRAGA MD Urinalysis, Cult If Indicated (02/12/25 09:01) Drug Screen, Urine (02/12/25 09:01) Monitor (02/12/25 09:51) Saline Lock (02/12/25 09:51) Nothing By Mouth (02/12/25 Lunch) Dextrose 5%-1/2 Normal Saline (Dextrose (02/12/25 09:55) Completed Orders - LISA LIZARRAGA MD Cbc/Diff (02/12/25 09:01) BMP (02/12/25 09:01) Lipase (02/12/25 09:01) CMP (02/12/25 09:01) Electrocardiogram (02/12/25 ) Ondansetron Inj. (Zofran 4mg/2ml Vial) (02/12/25 09:55) Famotidine/Pf Iv Inj (Pepcid Iv Inj) (02/12/25 09:55) Thiamine Inj. (Thiamine Inj.) (02/12/25 09:55) Folic Acid Inj. (Folic Acid Inj.) (02/12/25 09:55) Medications Received in ER Medications (Trade) Dose Ordered Sig/Tomás Route PRN Reason Start Time Stop Time Status Last Admin Dose Admin (Zofran 4mg/2ml vial) 4 mg ONCE ONCE IV 02/12/25 09:55 02/12/25 09:56 DC 02/12/25 10:25 4 MG (Pepcid IV inj) 20 mg ONCE ONCE IV 02/12/25 09:55 02/12/25 09:56 DC 02/12/25 10:24 20 MG (thiamine inj.) 100 mg ONCE ONCE IV 02/12/25 09:55 02/12/25 09:56 DC 02/12/25 10:25 100 MG (folic acid inj.) 1 mg ONCE ONCE IV 02/12/25 09:55 02/12/25 09:56 DC 02/12/25 10:25 1 MG Dextrose/Sodium Chloride 1,000 ml @ 250 mls/hr Q4H ONCE IV 02/12/25 09:55 02/12/25 13:54 02/12/25 10:22 250 MLS/HR Vital Signs 02/12/25 02/12/25 02/12/25 02/12/25 08:52 09:06 09:45 11:30 Temp 97.9 97.9 97.9 Pulse 113 97 94 Resp 18 18 16 16 B/P (MAP) 99/54 103/57 (72) 116/61 (79) Pulse Ox 99 99 99 O2 Flow Rate 0 0 0 02/12/25 12:37 Temp 97.9 Pulse 93 Resp 18 B/P (MAP) 112/64 (80) Pulse Ox 98 O2 Flow Rate 0 Laboratory Tests Test 02/12/25 09:26 02/12/25 12:45 White Blood Count 5.1 Red Blood Count 4.33 Hemoglobin 13.1 Hematocrit 39.5 Mean Corpuscular Volume 91.3 Mean Corpuscular Hemoglobin 30.4 Mean Corpuscular Hemoglobin Concent 33.3 Red Cell Distribution Width 14.8 H Platelet Count 236 Mean Platelet Volume 8.6 Neutrophils (%) (Auto) 45.0 Lymphocytes (%) (Auto) 51.5 H Monocytes (%) (Auto) 2.5 Eosinophils (%) (Auto) 0.2 Basophils (%) (Auto) 0.8 Neutrophils # (Auto) 2.3 Lymphocytes # (Auto) 2.6 Monocytes # (Auto) 0.1 Eosinophils # (Auto) 0.0 Basophils # (Auto) 0.0 CBC Comment Sodium Level 147 H Potassium Level 3.4 L Chloride Level 104 Carbon Dioxide Level 18.4 L Anion Gap 25 H Blood Urea Nitrogen 20 H Creatinine 0.65 Estimated GFR/1.73 m2 > 90 BUN/Creatinine Ratio 30.8 H Glucose Level 58 L Calcium Level 8.8 Total Bilirubin 0.5 Aspartate Amino Transf (AST/SGOT) 33 Alanine Aminotransferase (ALT/SGPT) 35 Alkaline Phosphatase 98 Total Protein 7.3 Albumin 4.2 Globulin 3.1 Albumin/Globulin Ratio 1.4 Lipase 14 L Chemistry Comments Urine Comment Drug Screen Comment Re-Evaluation Re-Evaluation : Re-Evaluation Time: 12:53 Progress Pt stable. Awaiting ua result Departure Referrals: NO PRIMARY CARE PROVIDER (PCP) LISA LIZARRAGA MD Feb 12, 2025 09:51
[2025-02-12] MEDS: famotidine/PF 10 mg/ml inj IV ONE (10:24)
[2025-02-12] MEDS: ondansetron/PF 4mg/2ml inj IV ONE (10:25)
[2025-02-12] MEDS: thiamine 100mg/ml 2ml inj. IV ONE (10:25)
[2025-02-12] MEDS: folic acid 1mg/0.2ml inj IV ONE (10:25)
[2025-02-12 12:55] LABS: LEUKOCYTE ESTERASE ,URINE NEGATIVE (Neg); NITRITES, URINE NEGATIVE (Neg); OCCULT BLOOD,URINE TRACE-INTACT (Neg)
[2025-02-12 12:59] LABS: UA COLLECTION TYPE CLN CATCH MIDSTREAM
[2025-02-12 13:04] LABS: URINE AMPHETAMINE SCREEN NEGATIVE (Neg); URINE BARBITUATE SCREEN NEGATIVE (Neg); URINE BENZODIAZEPINES SCREEN NEGATIVE (Neg); URINE CANNABINOID SCREEN NEGATIVE (Neg); URINE COCAINE SCREEN NEGATIVE (Neg); URINE METHADONE SCREEN NEGATIVE (Neg); URINE OPIATE SCREEN NEGATIVE (Neg); URINE PHENCYCLIDINE SCREEN NEGATIVE (Neg)
[2025-02-12 13:06] LABS: MUCUS STRANDS FEW /LPF (Neg); SQUAMOUS EPITHELIAL CELL,UR FEW /LPF (FEW)
[2025-02-12 13:22] VITALS: BP 148/88; PULSE 108; RESP 18; TEMP 97.9; O2SAT 99
[2025-02-12 13:22] LABS: ETHANOL 356 MG/DL (<10)
[2025-02-18] MEDS ORDERED: PRAZ1CAP5 PO (18:01)
[2025-02-21] MEDS ORDERED: POTA-207 PO (13:23)
== END 2025-02-12 14:04 | disposition left against medical advice (07) ==
LOC: ER 08:48
DX: F10.90 Alcohol use, unspecified, uncomplicated (principal); F41.9 Anxiety disorder, unspecified; Z87.11 Personal history of peptic ulcer disease; Z88.8 Allergy status to other drugs, medicaments and biological substances; Z79.899 Other long term (current) drug therapy; Y90.9 Presence of alcohol in blood, level not specified
CPT/HCPCS: 36415; 80053; 80305; 81001; 83690; 85025; 93005; 96361; 96374; 96375; 99285; G0480; J2405; J3411; J3490; J7042; 80320; J7070

== ENCOUNTER 2025-02-28 15:42 | Inpatient (IN) | payer MEDICARE, MEDICAID ==
[~2025-02-28] VITALS: Ht 170.2 cm; Wt 61.7 kg
[~2025-02-28 15:42] MED LIST changes: -MAGN500C4 PO; -NOR5T PO; +POTA-207 PO; -PRAZ1CAP5; +PRAZ1CAP5 PO; -thiamine tablet PO
--- NOTE | 2025-02-28 15:59 | Physician Documentation ---
History of Present Illness Chief Complaint: Abdominal Pain w/vomiting Stated Complaint: ABDOMINAL PAIN Primary Medical Doctor: Lien VERGARA MSE: Patient is a 64-year-old female that presents to the emergency department via ambulance for evaluation of abdominal pain accompanied by nausea and vomiting times 3-4 days days. Patient reports that she has had a history of pancreatitis with a pancreatic cyst. Patient reports that she took Zofran earlier today without any relief or improvement in her nausea and vomiting. HPI: The patient tells me that she was recently admitted to the hospital for a gastric ulcer and related issues. Since she has gone home, she is not having bowel movements. She tells me she has not had a bowel movement for a couple of weeks. She has not been passing gas recently. She feels like her abdomen is very distended. She has started having nausea and vomiting today. She tried using a laxative and an enema without any relief. She is concerned she may have a blockage. The pain is generalized and radiates through to her back. She also reports a history of pancreatitis. She was given Zofran earlier which did not help. No definite fevers or other infectious type symptoms. Medication Reconciliation Allergies: Coded Allergies: nabumetone (Verified Allergy, Unknown, 02/28/25) Scheduled Amitriptyline Hcl (Amitriptyline Hcl), 1-2 TAB PO HS, (Reported) Amlodipine Besylate (Amlodipine Besylate), 1 TAB PO DAILY, (Reported) Cholecalciferol (Vitamin D3) (Vitamin D3), 1 TAB PO DAILY, (Reported) Ferrous Sulfate (Ferrous Sulfate), 325 MG PO DAILY Folic Acid* (Folic Acid*), 1 TAB PO HS, (Reported) Gabapentin (Gabapentin), 3 CAP PO TID, (Reported) Lisinopril (Lisinopril), 20 MG PO DAILY Multivitamin with Folic Acid (Thera Tablet), 1 EACH PO Q24H Pantoprazole Sodium (Pantoprazole Sodium), 40 MG PO DAILY Potassium Chloride* (K-Dur*), 1 TAB PO DAILY Prazosin Hcl (Prazosin Hcl), 1 MG PO DAILY, (Reported) Past Medical History Past Medical History: GI Bleed, Peptic Ulcer Disease, Anxiety Patient History: FH: stomach cancer MOTHER, , Age: 60 years and older Alcohol Use: Alcoholic Drug Use: none Review of Systems Constitutional: Denies: fever Gastrointestinal: Reports: abdominal pain, nausea, vomiting, constipated Physical Exam Vital Signs: Temperature: 98.0, Source: Temporal, Heart Rate: 120, Respiratory Rate: 22, BP: 93/59, Pulse Oximetry: 93, Weight: 62.200 Oxygen Flow Rate: 0 Physical Exam General: This is an uncomfortable appearing middle-aged woman lying on her side holding her abdomen HEENT: Atraumatic, oropharynx is dry Heart: Tachycardic, appears regular Lungs: Diminished breath sounds bilateral, normal work of breathing, normal oxygen saturation on room air Abdomen: Distended abdomen, with diffuse tenderness to palpation and voluntary guarding Neuro: Alert and oriented Psychiatric: Appears uncomfortable but is cooperative with exam Progress Results/Orders Results/Orders Vital Signs 02/28/25 15:50 Temp 98.0 Pulse 120 Resp 22 B/P (MAP) 93/59 Pulse Ox 93 O2 Flow Rate 0 EKG/XRAY/CT/US/VASC/MRI CT : Impression I personally interpreted the CT scan, and this shows bowel obstruction with surrounding edema Consults/PCP Consults/PCP : Additional Comment CONSULT: Spoke to general surgery, Dr. Hirsch. He recommends a CT scan with rectal contrast. NPO. Plan for OR in the morning Consult: I spoke to the internal medicine service, for admission in the hospital Medical Decision Making Differential Dx:Considerations: Include: Appendicitis, Bowel obstruction, Cholelithasis, Constipation, Diverticular disease, Gastritis/PUD, GI hemorrhage, Hernia, Inflammatory BD, Ischemic bowel, Pancreatitis, Urinary tract infection Additional Comments The patient presents with abdominal pain, and on exam has diffuse tenderness. She also appears dehydrated. Her exam is concerning for possible bowel obstruction or ileus. Labs are grossly unremarkable, no significant dehydration or leukocytosis. She will be treated with IV fluids, pain and nausea medicine. A CT scan will be obtained to evaluate for obstruction. CT does show a large bowel obstruction. General surgery consulted. The patient will be admitted for further testing and operative intervention. Departure Impression: Primary Impression: Generalized abdominal pain Additional Impressions: Nausea and vomiting Large bowel obstruction Referrals: NO PRIMARY CARE PROVIDER (PCP) Signature Scribe Signature: na Attestation: CHIKIS Carpenter Feb 28, 2025 15:59 ANTELMO SOLO MD Feb 28, 2025 19:19
[2025-02-28 16:17] LABS: MEAN PLATELET VOLUME 8.7 FL (7.4-10.4); RED CELL DISTRIBUTION WIDTH 15.1 % (11.5-14.5)
[2025-02-28 16:28] LABS: CREATININE 0.61 MG/DL (0.40-0.90); TOTAL CARBON DIOXIDE 25.1 MMOL/L (24-32); eCRCL 87 ML/MIN; eGFR > 90 ML/MIN
[2025-02-28] MEDS: ondansetron 4mg rapidly disintigrating tab PO ONE (18:53)
[2025-02-28] MEDS: normal saline 1000ml 1,000 ML IV ONE (20:04)
[2025-02-28] MEDS: morphine 4 MG/ML inj SYRINge IV ONE (20:04)
--- NOTE | 2025-02-28 20:46 | RADIOLOGY REPORT ---
Exam: CT CT ABDOMEN PELVIS W/ IV CONTRAST History: diffuse abd pain, n/v, no BM, distended COMPARISON: CT CT ABDOMEN PELVIS W/ IV CONTRAST on DOS: 02/18/25, CT CT ABDOMEN PELVIS on DOS: 06/10/24 Technique: Multidetector spiral CT of the abdomen and pelvis was performed from lung bases to pubic symphysis. Intravenous contrast was administered during this examination. Portal venous imaging was obtained. Axial, coronal and sagittal multiplanar reformats were performed by the technologist on a separate workstation. Radiation Dose : 1. Abdomen/Pelvis: CTDIvol 19.17 mGy, DLP 972.32 mGy*cm. CONTRAST: Type of contrast: Omnipaque 350 Contrast injected: 100 ml Findings: Lung Bases: No acute or significant lung base finding. Normal heart size. No pleural or pericardial effusion. Liver: The liver is normal in size. No focal lesions. Normal hepatic vascular enhancement. Gallbladder and biliary Tree: Unremarkable Spleen: Unremarkable Pancreas: Atrophic parenchyma. Adrenal Glands: Unremarkable Kidneys: No hydronephrosis. Bladder: Unremarkable Bowel: Short segmental high grade stricturing without obvious underlying mass at the mid sigmoid colon resulting in a high grade large bowel obstruction. Cecum is dilated to 8.3 cm. Small bowel is completely decompressed. Diffuse mesenteric edema Ascites: Absent Lymphadenopathy: No mesenteric, retroperitoneal or periportal lymphadenopathy. Abdominal wall and Mesentery: Unremarkable. Vasculature: The visualized abdominal aorta is normal in size and caliber. Abdominal and pelvic vessels demonstrate normal enhancement. Pelvic Organs: Unremarkable Musculoskeletal: No aggressive focal bony lesions, acute fractures or dislocation. IMPRESSION: High grade large bowel obstruction with abrupt transition at the level of the mid sigmoid colon where there is a focal area of severe stricturing. Colon is markedly dilated with complete decompression of the small bowel suggesting lack of backflow through the ileocecal valve. Surgical consultation recommended. Radiation optimization: All CT scans at this facility use at least one of these dose optimization techniques: automated exposure control mA and/or kV adjustment per patient size (includes targeted exams where dose is matched to clinical indication) or iterative reconstruction.
[2025-02-28] MEDS ORDERED: magnesium sulf-water 4G/100mL 100 ML IV PRN (22:15)
[2025-02-28] MEDS ORDERED: mag hydrox/Alum hydrox/simeth 30ml oral suspension PO PRN (22:15)
[2025-02-28] MEDS ORDERED: potassium Cl 40MEQ/1/2NS 520ml 520 ML IV PRN (22:15)
[2025-02-28] MEDS ORDERED: potassium Cl 20 mEq SR tablet PO PRN ×2 (22:15)
[2025-02-28] MEDS ORDERED: magnesium sulf-water 2g/50mL 50 ML IV PRN (22:15)
[2025-02-28] MEDS ORDERED: dextrose 50%-water 50ml dispensing syringe IV PRN (22:15)
[2025-02-28] MEDS ORDERED: magnesium Cl slow-release 64mg tablet PO PRN (22:15)
[2025-02-28] MEDS ORDERED: magnesium hydroxide 30ml (MOM) UD suspension PO PRN (22:15)
[2025-02-28] MEDS ORDERED: sodium chloride inj. 154 MEQ in Dextrose 10%-water IV solution 961.5 ML IV SCH (22:20)
--- NOTE | 2025-02-28 22:30 | HISTORY AND PHYSICAL-Residence ---
History & Physical Providers to CC Resident Creating Document: ANSELMO CARLOS, RES CC: STEFFANIE JUSTIN MD ~ History of Present Illness Primary Medical Doctor: Namehaus Reason for Admit\Complaint: Abdominal pain History of Present Illness A 64-year-old female with PMH of HTN and perforated viscus s/p ostomy s/p reversal three years ago presented to the ED in view of generalized abdominal pain that started yesterday. Patient states that she has tenderness abdominal pain cramping in type, 10/10 in severity that has radiating to all over her belly. No factors that worsen the pain but pain meds help the situation. Additionally patient had associated nausea and about 10 episodes of vomitings with brownish colored fluid. Patient's last bowel movement was a couple of weeks ago. Patient tried multiple laxatives and stool softeners, did not have a bowel movement. Patient underwent colonoscopy in the last admission which was unremarkable but for a stricture in sigmoid colon which was biopsied. Patient underwent EGD with findings notable for LA grade B reflux esophagitis without active bleeding Patient had multiple recent admissions for upper GI bleed, pancreatitis, alcoholic intoxication. Allergies: Coded Allergies: nabumetone (Verified Allergy, Unknown, 02/28/25) Home Medications Home Medications Active K-Dur* (Potassium Chloride) 20 Meq Tab.prt.sr 1 Tab PO DAILY Pantoprazole Sodium 40 Mg Tablet.dr 40 Mg PO DAILY 30 Days Ferrous Sulfate 325 Mg (65 Mg Iron) Tablet 325 Mg PO DAILY 30 Days Thera Tablet (Multivitamin with Folic Acid) 400 Mcg Tablet 1 Each PO Q24H 30 Days Lisinopril 20 Mg Tablet 20 Mg PO DAILY 30 Days Reported Prazosin Hcl 1 Mg Capsule 1 Mg PO DAILY Amitriptyline Hcl 25 Mg Tablet 1-2 Tab PO HS Amlodipine Besylate 5 Mg Tablet 1 Tab PO DAILY Vitamin D3 (Cholecalciferol (Vitamin D3)) 25 Mcg (1000 Unit) Tablet 1 Tab PO DAILY Folic Acid* (Folic Acid) 0.4 Mg Tablet 1 Tab PO HS Gabapentin 100 Mg Capsule 3 Cap PO TID Past Medical History Past Medical History HTN Alcohol use disorder Chronic back pain Sigmoid diverticulitis with perforation Anion gap metabolic acidosis Alcoholic intoxication Upper GI bleed secondary to gastritis Acute pancreatitis Past Surgical History Surgical History Comment Jaswinder's with ostomy placement status post reversal Orthopedic surgeries Cholecystectomy Shoulder surgery Back surgery Family History Family History: FH: stomach cancer MOTHER, , Age: 60 years and older Past Social History Social History Comment Quit drinking alcohol two years ago, multiple relapses. Last drink a couple of weeks ago. Does not smoke cigarettes, marijuana or illicit drugs Quit smoking two years ago, smoked half pack of cigarettes every day for 20 years Goes to [facility] for primary care Dr. Bermeo for GI Lives alone at home Alcohol Use: Alcoholic Drug Use: None ROS ROS Constitutional: No fever, chills, dizziness, weight gain or loss Eyes: No pain, erythema, discharge, blurring of vision ENT: No sore throat, epistaxis, tinnitus Cardiovascular: No Shortness of breath. Chest pressure, chest discomfort, palpitations, syncope, lower extremity edema, paroxysmal nocturnal dyspnea Respiratory: No Shortness of breath and cough, No hemoptysis Gastrointestinal: Abdominal pain, constipation, distention, nausea and vomitings. Normal appetite. Musculoskeletal: No deformities Integumentary: No change in skin, hair, nails. No swelling, bruising, abrasions Neurologic: No headache, neck pain, numbness or tingling of the extremities, weakness Psychiatric: No delusions, depression, loss of interest in normal activity or change in sleep pattern, hallucinations, suicidal ideations Endocrine: No fatigue, weakness, polydipsia, polyuria, change in appetite, heat or cold intolerance, sweating, dry skin Constitutional: Denies: fever Gastrointestinal: Reports: abdominal pain, nausea, vomiting, constipated Exam Vitals: Vital Signs Date Time Temp Pulse Resp B/P (MAP) Pulse Ox O2 Delivery O2 Flow Rate FiO2 02/28/25 22:01 106 16 134/83 (100) 94 0 02/28/25 15:50 98.0 General: General: Moderately built elderly female, Alert, awake, oriented, in acute distress HEENT: PERRLA, no icterus, pallor, lymphadenopathy, carotid bruit Respiratory system: Bilateral vesicular breath sounds heard, no adventitious breath sounds CVS: S1-S2 heard, grade 3/6 HSM murmur in the mitral area radiating to the tricuspid area GI: Diffusely tender distended abdomen with multiple surgical scars, Soft, no organomegaly, no guarding/rigidity, bowel sounds present Neuro: No focal neurological deficits present Extremities: No edema cyanosis clubbing Musculoskeletal: No deformities Skin: Warm and dry Psych: Normal mood and affect Diagnostic Data Last Recorded Lab Results: 03/01/2521603/01/25216 Advance Care Planning Advanced Care plannin - 30 Minutes (I spent 20 minutes discussing various resuscitative measures and the patient decided to be full code) Additional Plan Assessment: A 64-year-old female with a PMH of HTN and perforated viscus s/p Jaswinder's pouch/B ostomy reversal presented to the ED in view of severe abdominal pain. On further imaging, patient was found to have large bowel obstruction. Dr. Quach is consulted and has schedule her for surgery in a... Patient is admitted for the evaluation management of large bowel obstruction. Plan: Large bowel obstruction ? Impending perforation Mild leukocytosis with left shift CT abdomen: High grade large bowel obstruction with abrupt transition at the level of the mid sigmoid colon where there is a focal area of severe stricturing. Colon is markedly dilated with complete decompression of the small bowel suggesting lack of backflow through the ileocecal valve. Dr. Quach consulted, surgery in a.m. Recommended CT abdomen with a rectal contrast, appreciate recommendations IV Zosyn 3.375 q8h NPO IV fluids at 75 cc/hour Pain meds p.r.n., Compazine for nausea vomitings q.6h p.r.n. Hypovolemic shock Continue to monitor vitals IV fluid resuscitation Rebound alcohol use disorder Mild Alcohol withdrawal protocol IV thiamine, MVT, folic acid HTN Currently patient has soft blood pressures Continue to monitor vitals IV fluid resuscitation Follow up with urinalysis and U tox Code status: Full code Diet: NPO DVT prophylaxis: SCD Disposition: Admit to PCU, follow up with CT abdomen with a rectal contrast, surgery in a.m. Anselmo Carlos MD Internal Medicine, PGY 2 Date of Service: Feb 28, 2025 Billing Provider: STEFFANIE JUSTIN MD Addendum agree with resident IM 3 ANSELMO CARLOS, RES Feb 28, 2025 22:30 STEFFANIE JUSTIN MD Mar 01, 2025 04:19
[2025-02-28] MEDS: HYDROcodone/acetaminophen 5mg/325mg tablet PO PRN (23:13)
[2025-02-28] MEDS: ondansetron/PF 4mg/2ml inj IV PRN (23:26)
[2025-02-28 23:46] LABS: LEUKOCYTE ESTERASE ,URINE NEGATIVE (Neg); NITRITES, URINE NEGATIVE (Neg); OCCULT BLOOD,URINE NEGATIVE (Neg)
[2025-02-28 23:47] LABS: URINE HCG NEGATIVE (NEG)
[2025-02-28 23:56] LABS: UA COLLECTION TYPE NON-SPECIFIED
[2025-03-01] VITALS (23 sets, daily range): BP systolic 90–145; BP diastolic 53–110; PULSE 66–111; RESP 12–20; TEMP 97.8–99.8; O2SAT 92–100
[2025-03-01 00:03] LABS: URINE AMPHETAMINE SCREEN NEGATIVE (Neg); URINE BARBITUATE SCREEN NEGATIVE (Neg); URINE BENZODIAZEPINES SCREEN NEGATIVE (Neg); URINE CANNABINOID SCREEN NEGATIVE (Neg); URINE COCAINE SCREEN NEGATIVE (Neg); URINE METHADONE SCREEN NEGATIVE (Neg); URINE OPIATE SCREEN POSITIVE (Neg); URINE PHENCYCLIDINE SCREEN NEGATIVE (Neg)
[2025-03-01 02:33] LABS: MEAN PLATELET VOLUME 8.8 FL (7.4-10.4); RED CELL DISTRIBUTION WIDTH 15.3 % (11.5-14.5)
[2025-03-01 02:43] LABS: CREATININE 0.57 MG/DL (0.40-0.90); TOTAL CARBON DIOXIDE 30.4 MMOL/L (24-32); eCRCL 93 ML/MIN; eGFR > 90 ML/MIN
[2025-03-01] MEDS: piperacillin/tazo 3.375gm/50ml 50 ML IV SCH (03:29)
[2025-03-01] MEDS: thiamine 100mg/ml 2ml inj. IV SCH (08:00)
[2025-03-01] MEDS: docusate sod 100mg capsule PO SCH (08:00)
[2025-03-01] MEDS: K and/or MAG REPLACEMENT MC SCH (08:00)
[2025-03-01] MEDS: folic acid 1mg/0.2ml inj IV SCH (08:00)
[2025-03-01] MEDS ORDERED: ondansetron/PF 4mg/2ml inj IV PRN (08:05)
[2025-03-01] MEDS ORDERED: labetalol 20mg/4ml (5mg/ml) syringe IV PRN (08:05)
[2025-03-01] MEDS ORDERED: hydrALAZINE 20mg/ml inj. IV PRN (08:05)
[2025-03-01] MEDS ORDERED: ringers solution, lacted 1,000 ML IV SCH (08:05)
--- NOTE | 2025-03-01 09:24 | ELECTROCARDIOGRAPH REPORT ---
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 ANISA Chen Measurements Intervals [place] Rate: 80 P: 70 MI: 167 QRS: -14 QRSD: 90 T: 63 QT: 391 QTc: 451 Interpretive Statements Sinus rhythm Borderline low voltage, extremity leads Electronically Signed On 03-01-2025 17:11:[address] ANISA Chen Please click the below link to view image of tracing.
[2025-03-01] MEDS: morphine 4 MG/ML inj SYRINge IV PRN ×2 (10:02→23:57)
--- NOTE | 2025-03-01 11:07 | PROGRESS NOTE ---
Progress Note ID Providers to CC ~ Progress Note Progress Note: pt seen and examined-findings consistent with LBO secondary to sigmoid stricture-pt needs partial colectomy-discussed procedure including risks/benefits/alternatives TODD NESS MD Mar 01, 2025 11:07
[2025-03-01] MEDS ORDERED: MIDAZolam 1 MG/ML 5ML VIAL ONE (11:22)
[2025-03-01] MEDS ORDERED: fentaNYL /PF 50mcg/ml 5ml ampule ONE (11:22)
[2025-03-01] MEDS ORDERED: ondansetron/PF 4mg/2ml inj ONE (11:24)
[2025-03-01] MEDS ORDERED: propofol inj 20 ML IV ONE (11:24)
[2025-03-01] MEDS ORDERED: LIDOcaine 1%/PF 5ML 10 MG/ML VIAL ONE (11:24)
[2025-03-01] MEDS ORDERED: acetaminophen 1,000mg/100ml IV 100 ML IV ONE ×2 (11:24→11:43)
[2025-03-01] MEDS ORDERED: rocuronium 10mg/ml inj IV ONE ×3 (11:24→14:20)
[2025-03-01] MEDS ORDERED: dexmedetomidine 200mcg/2ml inj. IV ONE (11:27)
[2025-03-01] MEDS ORDERED: BUPIVACAINE liposomal/PF 13.3 MG/ML 10mL vial IM ONE (11:28)
[2025-03-01] MEDS ORDERED: BUPIVAcaine 0.5% inj/PF 30 ML ONE (11:28)
[2025-03-01] MEDS ORDERED: dexamethasone sod phosphate 4mg/ml inj. ONE (11:30)
--- NOTE | 2025-03-01 11:45 | CONSULTATION REPORT ---
Consult Providers to CC ~ History of Present Illness Reason for Admit\Complaint: Abomdinal pain History of Present Illness Patient presented with abdominal pain. Was found to have a small bowel obstruction. As such she is now undergoing surgery with general surgery for this. I was asked to place pre-operative stents. Patient has no previous urologic history. Allergies: Coded Allergies: nabumetone (Verified Allergy, Unknown, 02/28/25) Home Medications Home Medications Active K-Dur* (Potassium Chloride) 20 Meq Tab.prt.sr 1 Tab PO DAILY Pantoprazole Sodium 40 Mg Tablet.dr 40 Mg PO DAILY 30 Days Ferrous Sulfate 325 Mg (65 Mg Iron) Tablet 325 Mg PO DAILY 30 Days Thera Tablet (Multivitamin with Folic Acid) 400 Mcg Tablet 1 Each PO Q24H 30 Days Lisinopril 20 Mg Tablet 20 Mg PO DAILY 30 Days Reported Prazosin Hcl 1 Mg Capsule 1 Mg PO DAILY Amitriptyline Hcl 25 Mg Tablet 1-2 Tab PO HS Amlodipine Besylate 5 Mg Tablet 1 Tab PO DAILY Vitamin D3 (Cholecalciferol (Vitamin D3)) 25 Mcg (1000 Unit) Tablet 1 Tab PO DAILY Folic Acid* (Folic Acid) 0.4 Mg Tablet 1 Tab PO HS Gabapentin 100 Mg Capsule 3 Cap PO TID Family History Family History: FH: colon cancer FH: stomach cancer GRANDFATHER OR GRANDMOTHER, Onset:40's - 50 ROS ROS A pertinent 10 point review of systems was performed and was normal except as otherwise noted. Please also see HPI for added review of systems. Exam Vitals: Vital Signs Date Time Temp Pulse Resp B/P (MAP) Pulse Ox O2 Delivery O2 Flow Rate FiO2 03/01/25 07:31 86 03/01/25 04:15 98.6 16 118/4 (42) 96 0 General: General: Awake and Alert, no acute distress. HEENT: HEENT: Conjunctiva pink Neck: Neck: Supple without masses and tenderness. Chest: Resp: Unlabored. Cardiovascular: Heart: Regular Rate and rhythm Abdomen: Abdomen: Distended Extremities: Extremities: No cyanosis,clubbing or edema. Skin: Skin: Warm and Dry. Diagnostic Data Last Recorded Lab Results: 03/01/2521603/01/25216 Problems: (1) Generalized abdominal pain Status: Acute (2) Large bowel obstruction Status: Acute Assessment & Plan: Undergoing surgery today with general surgery. I have been asked to place stents. I discussed risks of the procedure with the patient including infection, bleeding, damage to surrounding tissues, and need for stents long-term. I discussed benefits including allowing for easier identification of ureters avoiding injury and also identifying injury quicker for repair. I discussed alternatives including no stent placement. After discussion the patient consented to cystoscopy, bilateral ureteral temporary stent placement. - Cystoscopy bilateral ureteral stent placement LUCIA MAYNARD MD Mar 01, 2025 11:45
--- NOTE | 2025-03-01 12:01 | OPERATIVE REPORT ---
Operative Report Providers to ~ Date of Procedure: Mar 01, 2025 Pre-Operative Diagnosis: LARGE BOWEL OBSTRUCTION Post-Operative Diagnosis SAME as PRE-Op Procedure Performed Cystoscopy, bilateral temporary ureteral stent placement. Surgeon: MD Georgi [facility] Case Manager None Anesthesiologist: Ho Meyer Type of Anesthesia: General Findings: Bilateral ureteral stents placed without issue Complications None Prosthetics\Implants used: Temporary 5 martiniquais ureteral catheter bilaterally. Estimated Blood Loss: Minimal Specimen Removed: None Description of Procedure: Patient was brought to the operating room, given a general anesthetic and placed in the dorsal lithotomy position. She was prepped and draped in the normal sterile fashion. A timeout was performed. A 22 martiniquais cystoscope was inserted via uretrha. The right ureteral orifice was identified and intubated with a 5 martiniquais catheter. I next turned my attention to the right side. Ureteral orifice was in the normal position. A 5 martiniquais catheter was again advanced on this side. Following this the cystoscope was removed and a 16 martiniquais alvarez catehter was inserted and attached to gravity drainage. The stents were left to drain into the catheter bag. This cortez the end of my portion of the procedure. Please see Dr. Marshall's operative note for the rest of the procedure. LUCIA MAYNARD MD Mar 01, 2025 12:01
--- NOTE | 2025-03-01 12:48 | ANESTHESIA RECORDS ---
Nerve Block Providers to CC CC: TODD NESS MD ~ Diagnosis: Nerve Block requested by: TODD NESS MD Neuraxial/Peripheral Nerve Block requested for Post-operative analgesia by Physician above DIAGNOSIS: Post-operative pain. (Body Area) Shoulder: [ ] Arm: [ ] Hand: [ ] Hip: [ ] Knee: [ ] Ankle: [ ] Foot: [ ] Leg: [ ] Abdomen: [__Bil TAP ] Other: [ ] Post-operative pain expected to be/is inadequately managed by oral or IV medicines. Regional anesthetic expected to facilitate rehabilitation and/or discharge from facility. Other:[ _] Procedure Performed: TAP Block: Bilateral Time out Done?: Yes Time of Time out: 12:16 Procedure Details: PROCEDURE DETAILS: Risks, benefits and alternatives explained Informed consent obtained, and patient wishes to proceed Conscious sedation with indicated monitors Patient positioned, pertinent anatomy defined, sterile technique used Needle used: [ ] 3 1/8 inch Stimuplex Ultra 22ga [X ] 4 inch Stimuplex Ultra 20ga [ ] 6 inch Stimuplex Ultra 20ga [ ] 6 inch, Quikbloc over the needle catheter set 20ga [ ] 4 inch Quikbloc over the needle catheter set 20ga [ ]Other: [ ] Loss of twitch @ [ ]mA [X ] Single Injection [ ] Catheter Ultrasound Guidance Used: [X ] Yes [ ] No Attempts:[__1,1 ] Medicines injected: [ ]Clonidine Amt:[ ] [ ]Dexamethasone Amt:[ ] [ ]Ropivacaine Amt:[ ] [ X ]Bupivacaine Amt:[___0.55 15 C.C ON EACH SIDE ] [ ]Lidocaine Amt:[ ] [ X ]Exparel 1.33%:[_10 c.c on each side ] [ ]Epinephrine Amt[ ] [ ]Other: [ ] Intermittent aspiration during local anesthetic administration No symptoms of intraneural or intravenous injection Patient tolerated procedure well Comments Ultrasound Examination of rd sub coastal areas of abdominal wall and identifical ov peritoneal cavity,abdominal wall layers including Transverse Abdominus plane (TAP). Needle is in the TAP on each side and a mix of Bu pevacaine+exparel is injected (25 c.c on each side). Spread is noted. Ultrasound imaage is captured and documented. ANKUR ARAUZ MD Mar 01, 2025 12:48
[2025-03-01] MEDS ORDERED: labetalol 20mg/4ml (5mg/ml) syringe IV ONE (13:01)
[2025-03-01] MEDS ORDERED: fentaNYL/PF 50MCG/1 ML 2ML syringe ONE (14:22)
--- NOTE | 2025-03-01 15:21 | OPERATIVE REPORT ---
Operative Report Providers to CC ~ Date of Procedure: Mar 01, 2025 Pre-Operative Diagnosis: LARGE BOWEL OBSTRUCTION Post-Operative Diagnosis SAME as PRE-Op Procedure Performed ex lap/adán/sigmoid resection/takedown splenic flexure Surgeon: radha dior Anesthesiologist: Ho Meyer Type of Anesthesia: General Findings: extensive adhesions/sigmoid stricture Estimated Blood Loss: 200 ml Specimen Removed: sigmoid colon TODD NESS MD Mar 01, 2025 15:21
[2025-03-01] MEDS: fentaNYL/PF 50MCG/1 ML 2ML syringe IV PRN ×2 (16:03→16:55)
--- NOTE | 2025-03-01 18:49 | OPERATIVE REPORT ---
DATE OF SURGERY: 03/01/2025 DICTATING PHYSICIAN: Dipesh Hirsch MD PREOPERATIVE DIAGNOSIS: Large bowel obstruction with sigmoid stricture. POSTOPERATIVE DIAGNOSIS: Large bowel obstruction with sigmoid stricture. PROCEDURES PERFORMED: * Laparotomy. * Takedown of adhesions. * Mobilization of splenic flexure. * Sigmoid resection with primary anastomosis and EEA 31 stapler. SURGEON: Dipesh Hirsch MD COURT SPECIALIST: Sophie ANESTHESIA: General/Dr. Meyer. DRAINS: Scott x 1. INDICATIONS FOR OPERATION: A 64-year-old female with a history of a previous Jaswinder procedure for diverticulitis, had a colostomy takedown. The patient developed evidence of large bowel obstruction with a stricture in the left lower quadrant and taken to Surgery for surgical intervention. INTRAOPERATIVE FINDINGS: The patient had extensive adhesions with a tight stricture in the sigmoid colon with a pelvic inlet. DESCRIPTION OF PROCEDURE: The patient was placed supine on the operating table. After induction of general anesthesia and placement of an endotracheal tube, the abdomen was prepped and draped. The abdomen was entered through a midline incision and adhesions were taken down. The small bowel was mobilized up out of the pelvis. The left colon was subsequently visualized. There appeared to be a tight stricture with the sigmoid colon passed into the pelvic inlet. The colon was mobilized proximally and distally, and blunt dissection was used to mobilize the stricture away from the pelvic sidewall. A previous ureteral stent had been placed by Dr. Laureano. The colon was then divided proximal and distal to the sigmoid stricture. A #31 EEA anvil was then placed proximally. A #31 stapler was then placed through the rectum and an end-to-end anastomosis was constructed. Two donuts were found to be intact. There was no leak when air was insufflated into the rectum underwater. The abdomen was then copiously irrigated with a large amount of antibiotic-containing solution. The small bowel was run from ligament of Treitz to ileocecal valve. Adhesions were taken down. A drain was placed through a separate stab incision and directed into the pelvis. ____ rectal fascia was closed with running sutures of loop PDS. The skin was closed with clips. A dressing was applied. The patient was transferred to Recovery in stable condition. Dipesh Hirsch MD TID: [id number] RECEIPT: [id number]/NARESH
--- NOTE | 2025-03-01 19:19 | PROGRESS NOTE ---
Daily Progress Note Providers to CC ~ Antibiotic Timeout Antibiotic Ordered?: Yes Subjective With the patient postop the patient had some abdominal discomfort but otherwise was doing well. Objective Vital Signs Date Time Temp Pulse Resp B/P (MAP) Pulse Ox O2 Delivery O2 Flow Rate FiO2 03/01/25 18:30 80 03/01/25 17:33 16 03/01/25 17:10 121/77 (92) 100 Nasal Cannula 2.0 03/01/25 15:15 98.2 Result Diagram: 03/01/2521603/01/25216 Gen. No acute distress alert and oriented 4 Lungs clear to ascultation bilaterally, no wheezes rales or rhonchi appreciated Heart normal sinus rhythm no murmurs rubs or clicks noted Abdomen soft significant generalized tenderness bowel sounds are hypoactive Lower extremities no clubbing cyanosis, nor edema appreciated bilaterally Problem\\Assessment\\Plan Problems/Diagnosis: (1) Large bowel obstruction # large bowel obstruction Status post surgical procedures with Dr. Hirsch on 03/01/2025: "* Laparotomy. * Takedown of adhesions. * Mobilization of splenic flexure. * Sigmoid resection with primary anastomosis and EEA 31 stapler." # hypovolemic shock Resolved blood pressure is normotensive currently continue monitor # alcohol use disorder Alcohol withdrawal protocol is ordered # hypertension Blood pressure is under acceptable control Date of Service: Mar 01, 2025 Billing Provider: MACRINA ENG DO Common Visit Codes: [id number] INP/OBS CARE(HIGH) MACRINA ENG DO Mar 01, 2025 19:19
[2025-03-01] MEDS: ondansetron/PF 4mg/2ml inj IV PRN (19:49)
[2025-03-01] MEDS: HYDROmorphone inj. 0.5 MG/0.5 ML DISP.SYRIN IV PRN (19:50)
[2025-03-02] VITALS (8 sets, daily range): BP systolic 110–139; BP diastolic 59–71; PULSE 95–113; RESP 16–21; TEMP 98.6–99.8; O2SAT 92–100
--- NOTE | 2025-03-02 03:30 | CONSULTATION ---
DATE OF CONSULTATION: 03/01/2025 DICTATING PHYSICIAN: Dipesh Hirsch MD REASON FOR CONSULTATION: Abdominal pain. HISTORY OF PRESENT ILLNESS: The patient is a 64-year-old female with a history of hypertension who underwent a sigmoid resection with colostomy approximately 4-5 years ago for perforated diverticulitis per her report. She had a colostomy reversal per Dr. Sutherland approximately 4 years ago. The patient was in the ER on 03/01 with some abdominal discomfort. CT of the abdomen revealed a tight sigmoid stricture, large bowel obstruction. Surgical evaluation is now requested. On further questioning, the patient complains of some persistent abdominal discomfort. No BM. Has very small amounts of gas. PAST MEDICAL HISTORY: History of alcohol use, chronic pain, sigmoid diverticulitis, history of pancreatitis, history of upper GI bleed. PAST SURGICAL HISTORY: Includes sigmoid resection with colostomy with subsequent reversal, previous cholecystectomy, shoulder procedure, and back procedure. HOME MEDICATIONS: Include prazosin, amitriptyline, amlodipine, vitamin D, folic acid, gabapentin. ALLERGIES: INCLUDE NABUMETONE. SOCIAL HISTORY: No history of alcohol use. No tobacco use. REVIEW OF SYSTEMS: See H and P. PHYSICAL EXAMINATION: GENERAL: Well-nourished, elderly female, in minimal distress. VITAL SIGNS: Unremarkable. HEART: Regular rate and rhythm. LUNGS: Clear to auscultation. ABDOMEN: Distended with diffuse tenderness. EXTREMITIES: Unremarkable. NEUROLOGIC: Nonfocal. LABORATORY DATA: WBC 12, hematocrit of 37, platelet count 350. Chemistries include a sodium 131, potassium 3.5, BUN and creatinine 12 and 0.57, lactic acid 1.7. IMAGING STUDIES: CT abdomen and pelvis reveals a small bowel dilatation proximal to the mid sigmoid colon. Appears to be a tight stricture in the sigmoid colon leading to large bowel obstruction. IMPRESSION: * Large bowel obstruction, status post colostomy reversal with a tight stricture. * Recent severe abdominal discomfort. * History of hypertension. * History of alcohol abuse. * History of pancreatitis. RECOMMENDATIONS: Resection of sigmoid stricture ureteral stent placement preoperatively. No IV antibiotics. Dipesh Hirsch MD TID: [id number] RECEIPT: [id number] /[facility] [place]
[2025-03-02 06:10] LABS: MEAN PLATELET VOLUME 9.2 FL (7.4-10.4); RED CELL DISTRIBUTION WIDTH 15.4 % (11.5-14.5)
[2025-03-02 06:17] LABS: CREATININE 0.67 MG/DL (0.40-0.90); TOTAL CARBON DIOXIDE 27.9 MMOL/L (24-32); eCRCL 82 ML/MIN; eGFR 89 ML/MIN
--- NOTE | 2025-03-02 15:12 | PROGRESS NOTE ---
Progress Note ID Providers to CC ~ Progress Note Progress Note: complains of pain/vss/abd-mild distenion-drain output noted/labs noted a/p 1. s/p sigmoid resection-stable/resume po when gi function returns TODD NESS MD Mar 02, 2025 15:12
[2025-03-02] MEDS: HYDROmorph/NS 0.2 mg/ml PCA 100 ML IV SCH (17:00)
[2025-03-02] MEDS: normal saline 1000ml 1,000 ML IV SCH (17:18)
--- NOTE | 2025-03-02 20:14 | PROGRESS NOTE ---
Daily Progress Note Providers to CC ~ Antibiotic Timeout Antibiotic Ordered?: Yes Subjective The patient states her pain management in his not controlled- Dr. Dipesh Hirsch s urgeon DC PRN pain medication and started a STONE ROUGHER pump Objective Vital Signs Date Time Temp Pulse Resp B/P (MAP) Pulse Ox O2 Delivery O2 Flow Rate FiO2 03/02/25 18:30 112 03/02/25 17:26 16 03/02/25 15:00 98.8 118/71 (87) 97 Room Air 03/01/25 17:10 2.0 Result Diagram: 03/02/25 0537 03/02/25536 Gen. No acute distress alert and oriented 4 Lungs clear to ascultation bilaterally, no wheezes rales or rhonchi appreciated Heart normal sinus rhythm no murmurs rubs or clicks noted Abdomen soft significant generalized tenderness bowel sounds are hypoactive Lower extremities no clubbing cyanosis, nor edema appreciated bilaterally Problem\\Assessment\\Plan Problems/Diagnosis: (1) Large bowel obstruction # large bowel obstruction Status post surgical procedures with Dr. Hirsch on 03/01/2025: "* Laparotomy. * Takedown of adhesions. * Mobilization of splenic flexure. * Sigmoid resection with primary anastomosis and EEA 31 stapler." 03/02 PRN pain medication was discontinued and a PC pump was started # hypovolemic shock Resolved blood pressure is normotensive currently continue monitor # alcohol use disorder Alcohol withdrawal protocol is ordered # hypertension Blood pressure is under acceptable control Date of Service: Mar 02, 2025 Billing Provider: MACRINA ENG DO Common Visit Codes: [id number] INP/OBS CARE(HIGH) MACRINA ENG DO Mar 02, 2025 20:13
[2025-03-03 06:00] VITALS: BP 122/77; PULSE 99; RESP 18; TEMP 99.1; O2SAT 93
[2025-03-03 06:23] LABS: MEAN PLATELET VOLUME 9.2 FL (7.4-10.4); RED CELL DISTRIBUTION WIDTH 14.9 % (11.5-14.5)
[2025-03-03 06:28] LABS: CREATININE 0.57 MG/DL (0.40-0.90); TOTAL CARBON DIOXIDE 30.2 MMOL/L (24-32); eCRCL 97 ML/MIN; eGFR > 90 ML/MIN
[2025-03-03 08:00] VITALS: RESP 18; O2SAT 99
[2025-03-03 11:00] VITALS: BP 125/68; PULSE 99; RESP 16; TEMP 98.5; O2SAT 93
--- NOTE | 2025-03-03 13:20 | PROGRESS NOTE ---
Daily Progress Note Providers to CC ~ Antibiotic Timeout Antibiotic Ordered?: Yes Subjective No new complaints. Patient is sitting in his bedside chair. Just walked with PT Objective Vital Signs Date Time Temp Pulse Resp B/P (MAP) Pulse Ox O2 Delivery O2 Flow Rate FiO2 03/03/25 11:00 16 03/03/25 11:00 98.5 99 125/68 (87) 93 Room Air 03/01/25 17:10 2.0 Result Diagram: 03/03/25 0559 03/03/25 0604 Awake cooperative in no acute distress HEENT normocephalic atraumatic extraocular movements are intact Neck supple, no JVD Chest: Clear to auscultation, no wheezes crackles rhonchi Heart: Regular rate rhythm, no murmur or gallop rub Abdomen: Exam limited. Bandaged. Drain noted Extremities no cyanosis clubbing or edema Neuro exam nonfocal. Other Results Medications reviewed Problem\Assessment\Plan Problems/Diagnosis: (1) Large bowel obstruction 64 years old female with a history of hypertension presented to the ED for generalized abdominal pain which started one day prior to admission. Patient previously has a perforated viscus which required her to have an ostomy which was subsequently reversed three years ago. # large bowel obstruction: Patient underwent laparotomy by Dr. Hirsch on 03/01/2025 with takedown of adhesions, mobilization of the splenic flexure, sigmoid resection with primary anastomosis . Please refer to his detailed operative report for further information. Pain control adequate. Continue IV Zosyn. # hypovolemic shock : Resolved blood pressure is normotensive currently continue monitor # alcohol use disorder : Continue treat as per alcohol withdrawal protocol. # code status: Full code Date of Service: Mar 03, 2025 Billing Provider: MANJINDER STINSON MD Common Visit Codes: [id number] INP/OBS CARE(HIGH) MANJINDER STINSON MD Mar 03, 2025 13:20
[2025-03-03 15:00] VITALS: BP 123/69; PULSE 94; RESP 16; TEMP 99.1; O2SAT 90
[2025-03-03 18:00] VITALS: BP 138/72; PULSE 60; RESP 15; TEMP 97.7; O2SAT 97
--- NOTE | 2025-03-03 18:20 | PROGRESS NOTE ---
Progress Note ID Providers to CC ~ Progress Note Progress Note: pain improving/vss/abd-mild distention/labs noted a/p 1. s/p sigmoid resection-slow progress/cont supportive care TODD NESS MD Mar 03, 2025 18:20
[2025-03-03] MEDS: enoxaparin 40mg/0.4ml syringe SUBCUT SCH (21:55)
[2025-03-03 22:00] VITALS: BP 149/71; PULSE 101; RESP 15; TEMP 97.9; O2SAT 93
[2025-03-03] MEDS: PCA WASTE DOCUMENTATION 1 MG ML MC SCH (23:14)
[2025-03-04] VITALS (7 sets, daily range): BP systolic 119–143; BP diastolic 71–84; PULSE 82–94; RESP 9–18; TEMP 97.1–98.7; O2SAT 94–97
[2025-03-04 07:50] LABS: MEAN PLATELET VOLUME 9.1 FL (7.4-10.4); RED CELL DISTRIBUTION WIDTH 14.4 % (11.5-14.5)
[2025-03-04 08:03] LABS: CREATININE 0.53 MG/DL (0.40-0.90); TOTAL CARBON DIOXIDE 31.1 MMOL/L (24-32); eCRCL 104 ML/MIN; eGFR > 90 ML/MIN
[2025-03-04] MEDS: piperacillin/tazo 3.375gm/50ml 50 ML IV SCH (09:47)
[2025-03-04] MEDS ORDERED: magnesium sulf-water 2g/50mL 50 ML IV PRN (13:00)
[2025-03-04] MEDS ORDERED: potassium Cl 40MEQ/1/2NS 520ml 520 ML IV PRN (13:00)
[2025-03-04] MEDS ORDERED: potassium Cl 20 mEq SR tablet PO PRN (13:00)
[2025-03-04] MEDS ORDERED: magnesium sulf-water 4G/100mL 100 ML IV PRN (13:00)
--- NOTE | 2025-03-04 13:14 | PROGRESS NOTE ---
Daily Progress Note Providers to CC ~ Antibiotic Timeout Antibiotic Ordered?: Yes Subjective No new complaints, not passing flatus Objective Vital Signs Date Time Temp Pulse Resp B/P (MAP) Pulse Ox O2 Delivery O2 Flow Rate FiO2 03/04/25 06:30 85 03/04/25 06:00 97.5 15 134/79 (97) 95 Room Air 03/01/25 17:10 2.0 Result Diagram: 03/04/25 0703/04/25 07 Awake cooperative in no acute distress HEENT normocephalic atraumatic extraocular movements are intact Neck supple, no JVD Chest: Clear to auscultation, no wheezes crackles rhonchi Heart: Regular rate rhythm, no murmur or gallop rub Abdomen: Exam limited. Bandaged. Drain noted bowel sounds audible in left mid quadrant Extremities no cyanosis clubbing or edema Neuro exam nonfocal. Other Results Medications reviewed Problem\Assessment\Plan Problems/Diagnosis: (1) Large bowel obstruction 64 years old female with a history of hypertension presented to the ED for generalized abdominal pain which started one day prior to admission. Patient previously has a perforated viscus which required her to have an ostomy which was subsequently reversed three years ago. # large bowel obstruction: Patient underwent laparotomy by Dr. Hirsch on 03/01/2025 with takedown of adhesions, mobilization of the splenic flexure, sigmoid resection with primary anastomosis . Please refer to his detailed operative report for further information. Pain control adequate. Continue IV Zosyn. Await return of bowel function. # Hypovolemic shock : Resolved blood pressure is normotensive currently continue monitor # Alcohol use disorder : Continue treat as per alcohol withdrawal protocol. # Code status: Full code Date of Service: Mar 04, 2025 Billing Provider: MANJINDER STINSON MD Common Visit Codes: [id number] INP/OBS CARE(HIGH) MANJINDER STINSON MD Mar 04, 2025 13:14
--- NOTE | 2025-03-04 20:42 | PROGRESS NOTE ---
Progress Note ID Providers to CC ~ Progress Note Progress Note: pain improving-no bm/vss/abd-min distention/labs noted a/p 1. s/p sigmoid resection-doing well/start clears TODD NESS MD Mar 04, 2025 20:42
[2025-03-04] MEDS: potassium Cl 20 mEq SR tablet PO PRN (21:39)
[2025-03-05] VITALS (7 sets, daily range): BP systolic 120–146; BP diastolic 70–88; PULSE 75–89; RESP 12–18; TEMP 97.2–97.7; O2SAT 93–99
[2025-03-05 05:11] LABS: MEAN PLATELET VOLUME 8.9 FL (7.4-10.4); RED CELL DISTRIBUTION WIDTH 14.4 % (11.5-14.5)
[2025-03-05 05:20] LABS: CREATININE 0.48 MG/DL (0.40-0.90); TOTAL CARBON DIOXIDE 32.2 MMOL/L (24-32); eCRCL 115 ML/MIN; eGFR > 90 ML/MIN
[2025-03-05] MEDS ORDERED: POTASSIUM CHLORIDE 20 MEQ/15 ML oral solution PO PRN (08:56)
[2025-03-05] MEDS: magnesium hydroxide 30ml (MOM) UD suspension PO SCH (09:12)
[2025-03-05] MEDS: POTASSIUM CHLORIDE 20 MEQ/15 ML oral solution PO PRN (09:13)
--- NOTE | 2025-03-05 13:59 | PROGRESS NOTE ---
Daily Progress Note Providers to CC ~ Antibiotic Timeout Antibiotic Ordered?: Yes Subjective Patient has no new complaints. States she has starting to pass flatus. Objective Vital Signs Date Time Temp Pulse Resp B/P (MAP) Pulse Ox O2 Delivery O2 Flow Rate FiO2 03/05/25 08:15 Room Air 03/05/25 06:30 85 03/05/25 06:00 97.3 14 122/71 (88) 97 03/01/25 17:10 2.0 Result Diagram: 03/05/2543203/05/25432 Awake cooperative in no acute distress HEENT normocephalic atraumatic extraocular movements are intact Neck supple, no JVD Chest: Clear to auscultation, no wheezes crackles rhonchi Heart: Regular rate rhythm, no murmur or gallop rub Abdomen: Exam limited. Bandaged. Bowel sounds audible. Extremities no cyanosis clubbing or edema Neuro exam nonfocal. Other Results Medications reviewed Problem\Assessment\Plan Problems/Diagnosis: (1) Large bowel obstruction 64 years old female with a history of hypertension presented to the ED for generalized abdominal pain which started one day prior to admission. Patient previously has a perforated viscus which required her to have an ostomy which was subsequently reversed three years ago. # large bowel obstruction: Patient underwent laparotomy by Dr. Hirsch on 03/01/2025 with takedown of adhesions, mobilization of the splenic flexure, sigmoid resection with primary anastomosis . Please refer to his detailed operative report for further information. Pain control adequate. Continue IV Zosyn. Await return of bowel function. # Hypovolemic shock : Resolved blood pressure is normotensive currently continue monitor # Hypokalemia Replace per protocol. # Alcohol use disorder : Continue treat as per alcohol withdrawal protocol. # Code status: Full code # Disposition To Med surg. Date of Service: Mar 05, 2025 Billing Provider: MANJINDER STINSON MD Common Visit Codes: [id number] INP/OBS CARE(HIGH) MANJINDER STINSON MD Mar 05, 2025 13:59
--- NOTE | 2025-03-05 16:40 | PROGRESS NOTE ---
Progress Note ID Providers to CC ~ Progress Note Progress Note: pain improving -+ flatus/vss/abd-mild distention/labs noted s/p 1. s/p sigmoid resection-doing well/clears TODD NESS MD Mar 05, 2025 16:40
[2025-03-05] MEDS: NUT.TX.IMPAIRED DIGEST FXN (Ensure Clear) 237 ML PO SCH (18:00)
[2025-03-05] MEDS ORDERED: potassium Cl 20 mEq SR tablet PO PRN (18:04)
[2025-03-05] MEDS: potassium Cl 20 mEq SR tablet PO PRN (21:37)
[2025-03-06 02:00] VITALS: BP 128/66; PULSE 80; RESP 14; TEMP 97.7; O2SAT 96
[2025-03-06 03:40] VITALS: BP 147/86; PULSE 87; RESP 15; TEMP 98.3; O2SAT 93
[2025-03-06 06:00] VITALS: BP 123/70; PULSE 82; RESP 13; TEMP 97.1; O2SAT 96
[2025-03-06 10:00] VITALS: BP 139/74; PULSE 94; RESP 18; TEMP 97.6; O2SAT 96
--- NOTE | 2025-03-06 10:35 | PROGRESS NOTE ---
Daily Progress Note Providers to CC ~ Antibiotic Timeout Antibiotic Ordered?: Yes Subjective Patient has no new complaints. Sitting on a bedside chair. Objective Vital Signs Date Time Temp Pulse Resp B/P (MAP) Pulse Ox O2 Delivery O2 Flow Rate FiO2 03/06/25 06:00 97.1 82 13 123/70 (87) 96 Room Air 03/05/25 19:30 95 Result Diagram: 03/05/25 0433 03/06/25 0538 Awake cooperative in no acute distress HEENT normocephalic atraumatic extraocular movements are intact Neck supple, no JVD Chest: Clear to auscultation, no wheezes crackles rhonchi Heart: Regular rate rhythm, no murmur or gallop rub Abdomen: Exam limited. Bandaged. Bowel sounds audible. Extremities no cyanosis clubbing or edema Neuro exam nonfocal. Other Results Medications reviewed Problem\Assessment\Plan Problems/Diagnosis: (1) Large bowel obstruction 64 years old female with a history of hypertension presented to the ED for generalized abdominal pain which started one day prior to admission. Patient previously has a perforated viscus which required her to have an ostomy which was subsequently reversed three years ago. # large bowel obstruction: Patient underwent laparotomy by Dr. Hirsch on 03/01/2025 with takedown of adhesions, mobilization of the splenic flexure, sigmoid resection with primary anastomosis . Please refer to his detailed operative report for further information. Pain control adequate. ? Need for IV Zosyn. Await return of bowel function. # Hypovolemic shock : Resolved , monitor # Hypokalemia Replace per protocol. # Alcohol use disorder : No withdrawals reported . # Code status: Full code # Disposition To Med surg. Home when cleared by surgery. Date of Service: Mar 06, 2025 Billing Provider: MANJINDER STINSON MD Common Visit Codes: [id number] INP/OBS CARE(MOD) MANJINDER STINSON MD Mar 06, 2025 10:35
--- NOTE | 2025-03-06 12:10 | PROGRESS NOTE ---
Progress Note ID Providers to CC ~ Progress Note Progress Note: complains of pain/vss/abd-mild distention/drain output noted/labs noted a/p 1. s/p sigmoid resection-doing well/cont mom TODD NESS MD Mar 06, 2025 12:10
[2025-03-06] MEDS: lactulose 20gm/30ml cup PO ONE (16:58)
[2025-03-06 18:00] VITALS: BP 130/76; PULSE 99; RESP 16; TEMP 97.3; O2SAT 91
[2025-03-06 22:00] VITALS: BP 140/77; PULSE 105; RESP 15; TEMP 98.6; O2SAT 91
[2025-03-07] MEDS: ondansetron/PF 4mg/2ml inj IV ONE (02:35)
[2025-03-07 06:00] VITALS: BP 140/79; PULSE 91; RESP 14; TEMP 98.1; O2SAT 91
[2025-03-07 08:00] VITALS: RESP 14; O2SAT 91
[2025-03-07 08:20] VITALS: RESP 14; O2SAT 90
[2025-03-07] MEDS: metoclopramide 5 mg/ml inj IV SCH (13:16)
[2025-03-07] MEDS: diatr meglu/diatrizoate 30ml oral sol.-(3 dose) bottle PO SCH (13:30)
[2025-03-07] MEDS ORDERED: iohexol 300mg/ml 100ml inj. ONE (13:57)
--- NOTE | 2025-03-07 14:27 | RADIOLOGY REPORT ---
CHEST RADIOGRAPH Indication: NG PLACEMENT Technique: Single frontal view of the chest was obtained COMPARISON: ANGIO LINE PLACEMENT(PICC NURSE) on DOS: 03/04/25, DI CHEST,SINGLE VIEW on DOS: 06/10/24 FINDINGS: Lines and Tubes: Nasogastric tube in satisfactory position. Lungs: Left basilar subsegmental atelectasis. Pleura: No effusion.No pneumothorax. Cardiomediastinal contours: Unremarkable. Bones: Unremarkable. IMPRESSION: Nasogastric tube in satisfactory position.
[2025-03-07 18:00] VITALS: BP 147/92; PULSE 85; RESP 14; TEMP 99.1; O2SAT 92
--- NOTE | 2025-03-07 18:10 | PROGRESS NOTE ---
Daily Progress Note Providers to CC ~ Antibiotic Timeout Antibiotic Ordered?: Yes Subjective RN reports patient had several episodes of vomiting. Objective Vital Signs Date Time Temp Pulse Resp B/P (MAP) Pulse Ox O2 Delivery O2 Flow Rate FiO2 03/07/25 12:19 14 03/07/25 08:20 90 Room Air 03/07/25 06:00 98.1 91 140/79 (99) 03/05/25 19:30 95 Result Diagram: 03/05/25 0433 03/07/25 0611 Awake cooperative in no acute distress HEENT normocephalic atraumatic extraocular movements are intact Neck supple, no JVD Chest: Clear to auscultation, no wheezes crackles rhonchi Heart: Regular rate rhythm, no murmur or gallop rub Abdomen: Somewhat distended Bandaged. Bowel sounds audible. Extremities no cyanosis clubbing or edema Neuro exam nonfocal. Other Results Medications reviewed Problem\Assessment\Plan Problems/Diagnosis: (1) Large bowel obstruction 64 years old female with a history of hypertension presented to the ED for generalized abdominal pain which started one day prior to admission. Patient previously has a perforated viscus which required her to have an ostomy which was subsequently reversed three years ago. # large bowel obstruction: Patient underwent laparotomy by Dr. Hirsch on 03/01/2025 with takedown of adhesions, mobilization of the splenic flexure, sigmoid resection with primary anastomosis . Please refer to his detailed operative report for further information. Pain control adequate. ? Need for IV Zosyn. Await return of bowel function. # vomiting:? Ileus. 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 Treat per surgery recommendations. May need NG tube # Hypovolemic shock : Resolved , monitor # Hypokalemia Replace per protocol. # Alcohol use disorder : No withdrawals reported . # Code status: Full code # Disposition To Med surg. Home when cleared by surgery. Date of Service: Mar 07, 2025 Billing Provider: MANJINDER STINSON MD Common Visit Codes: [id number] INP/OBS CARE(HIGH) MANJINDER STINSON MD Mar 07, 2025 18:10
--- NOTE | 2025-03-07 18:49 | RADIOLOGY REPORT ---
Exam: CT CT ABDOMEN PELVIS W/ IV ORAL CONTRAST History: vomiting COMPARISON: CT CT ABDOMEN PELVIS W/ IV CONTRAST on DOS: 02/28/25, CT CT ABDOMEN PELVIS W/ IV CONTRAST on DOS: 02/18/25, CT CT ABDOMEN PELVIS on DOS: 06/10/24 Technique: Multidetector spiral CT of the abdomen and pelvis was performed from lung bases to pubic symphysis. Intravenous contrast was administered during this examination. Portal venous imaging was obtained. Axial, coronal and sagittal multiplanar reformats were performed by the technologist on a separate workstation. Radiation Dose : 1. Abdomen/Pelvis: CTDIvol 19 mGy, DLP 1057 mGy*cm. CONTRAST: Type of contrast: Omnipaque Contrast injected: 100 ml Findings: Lung Bases: Left lower lobe consolidation may reflect pneumonia or aspiration. Small left pleural effusion. Liver: The liver is normal in size. No focal lesions. Normal hepatic vascular enhancement. Gallbladder and Biliary Tree: Distended gallbladder measuring up to 11.5 cm . No intraluminal stones identified Spleen: Unremarkable Pancreas: The pancreas is normal in appearance without focal lesions or abnormal enhancement. Adrenal Glands: Unremarkable Kidneys: Mild right-sided hydroureteronephrosis without clear evidence of a focal obstructing lesion. Bladder: Markedly distended. Bowel: The stomach is grossly normal in appearance. Interval improvement in small bowel obstruction. Wall thickening and adjacent phlegmonous changes are seen throughout the remaining distal colon suggestive of infectious / inflammatory colitis. The appendix is not visualized; however, no secondary fin dings of acute appendicitis identified. Ascites: Extensive phlegmon and disorganized fluid is seen in the lower pelvis. No drainable fluid pocket identified. Lymphadenopathy: No mesenteric, retroperitoneal or periportal lymphadenopathy. Abdominal Wall and Mesentery: Unremarkable. Vasculature: The visualized abdominal aorta is normal in size and caliber. Abdominal and pelvic vessels demonstrate normal enhancement. Pelvic Organs: Unremarkable Musculoskeletal: No aggressive focal bony lesions, acute fractures or dislocation. Surgical fixation hardware seen in the lower lumbar spine. IMPRESSION: 1. Left lower lobe consolidation may reflect pneumonia or aspiration. 2. Small left pleural effusion. 3. Distended gallbladder measuring up to 11.5 cm. Recommend right upper quadrant ultrasound. 4. Interval improvement in small bowel obstruction since February 28, 2025. 5. Wall thickening and adjacent phlegmonous changes are seen throughout the remaining distal colon suggestive of infectious / inflammatory colitis. 6. Extensive phlegmon and disorganized fluid is seen in the lower pelvis. No drainable fluid pocket identified. 7. Markedly distended urinary bladder. 8. Mild right-sided hydronephrosis. Radiation optimization: All CT scans at this facility use at least one of these dose optimization techniques: automated exposure control mA and/or kV adjustment per patient size (includes targeted exams where dose is matched to clinical indication) or iterative reconstruction.
[2025-03-07 20:00] VITALS: RESP 14; O2SAT 92
--- NOTE | 2025-03-07 20:47 | PROGRESS NOTE ---
Progress Note ID Providers to CC ~ Progress Note Progress Note: complains of pain/vss/abd-distended/labs noted a/p 1. s/p sigmoid resection-needs ct TODD NESS MD Mar 07, 2025 20:47
[2025-03-07 22:00] VITALS: BP 128/80; PULSE 93; RESP 16; TEMP 98.4; O2SAT 95
[2025-03-08 06:00] VITALS: BP 141/78; PULSE 85; RESP 16; TEMP 98.4; O2SAT 94
[2025-03-08] MEDS: SINCALIDE IV ONE (08:00)
[2025-03-08] MEDS: NORMAL SALINE IV ONE (08:00)
[2025-03-08 08:16] LABS: MEAN PLATELET VOLUME 8.7 FL (7.4-10.4); RED CELL DISTRIBUTION WIDTH 14.7 % (11.5-14.5)
[2025-03-08] MEDS ORDERED: magnesium sulf-water 2g/50mL 50 ML IV PRN (08:20)
[2025-03-08] MEDS ORDERED: magnesium sulf-water 4G/100mL 100 ML IV PRN (08:20)
[2025-03-08] MEDS ORDERED: potassium Cl 20 mEq SR tablet PO PRN ×2 (08:20)
[2025-03-08] MEDS ORDERED: potassium Cl 40MEQ/1/2NS 520ml 520 ML IV PRN (08:20)
[2025-03-08] MEDS ORDERED: magnesium Cl slow-release 64mg tablet PO PRN (08:20)
--- NOTE | 2025-03-08 08:22 | RADIOLOGY REPORT ---
INDICATION: cholelithiasis TECHNIQUE: Multiple real-time sonographic images of the abdomen were obtained. COMPARISON: CT CT ABDOMEN PELVIS W/ IV ORAL CONTRAST on DOS: 03/07/25, CT CT ABDOMEN PELVIS W/ IV CONTRAST on DOS: 02/28/25, CT CT ABDOMEN PELVIS W/ IV CONTRAST on DOS: 02/18/25, CT CT ABDOMEN PELVIS on DOS: 06/10/24 FINDINGS: The liver is homogenous in echogenicity. The liver measures 14cm. No intrahepatic biliary ductal dilatation is noted. The gallbladder wall measures 0.1 cm and is unremarkable. No gallstones or sludge is seen. The common duct measures 0.6 cm and is unremarkable. No pericholecystic fluid is noted. The right kidney measures 11cm. No hydronephrosis. The pancreas is not well visualized due to obscuration from bowel gas. The visualized portions of the IVC and aorta are grossly unremarkable. IMPRESSION: Normal exam of the abdomen.
[2025-03-08 08:39] LABS: CREATININE 0.49 MG/DL (0.40-0.90); TOTAL CARBON DIOXIDE 34.3 MMOL/L (24-32); eCRCL 113 ML/MIN; eGFR > 90 ML/MIN
[2025-03-08 09:00] VITALS: RESP 16; O2SAT 94
[2025-03-08 10:00] VITALS: BP 150/79; PULSE 79; RESP 16; TEMP 98; O2SAT 94
--- NOTE | 2025-03-08 10:25 | RADIOLOGY REPORT ---
Procedure: NM NM HIDA SCAN Exam Date: 03/08/2025 08:21 AM Clinical History: cholecystitis Comparison Study: CT CT ABDOMEN PELVIS W/ IV ORAL CONTRAST on DOS: 03/07/25, CT CT ABDOMEN PELVIS W/ IV CONTRAST on DOS: 02/28/25, CT CT ABDOMEN PELVIS W/ IV CONTRAST on DOS: 02/18/25, CT CT ABDOMEN PELVIS on DOS: 06/10/24 Nuclear Medicine Hepatobiliary Scan. Technique: Following the intravenous administration of 5.4 mCi of technetium 99m labeled Choletec multiple planar abdominal planar images. Findings: The liver appears grossly normal in size. There is no abnormal persistence of the cardiac or blood pool activity. There is nonvisualization of the gallbladder. There is excretion into the small bowel. Impression: There is nonvisualization of the gallbladder which can be seen in cystic duct obstruction.
[2025-03-08] MEDS ORDERED: POTASSIUM CHLORIDE 20 MEQ/15 ML oral solution NG PRN (12:45)
[2025-03-08] MEDS ORDERED: acetaminophen 325mg/10.15ml oral unit dose solution NG PRN (12:53)
[2025-03-08] MEDS ORDERED: HYDROcodone/acetaminophen 7.5MG/325MG per 15ml UD CUP PO PRN (12:54)
[2025-03-08] MEDS ORDERED: HYDROcodone/acetaminophen 7.5MG/325MG per 15ml UD CUP NG PRN (12:54)
[2025-03-08] MEDS ORDERED: mag hydrox/Alum hydrox/simeth 30ml oral suspension NG PRN (12:54)
[2025-03-08] MEDS ORDERED: magnesium hydroxide 30ml (MOM) UD suspension NG PRN (12:55)
[2025-03-08] MEDS: POTASSIUM CHLORIDE 20 MEQ/15 ML oral solution NG PRN (14:08)
--- NOTE | 2025-03-08 16:34 | PROGRESS NOTE ---
Daily Progress Note Providers to CC ~ Antibiotic Timeout Antibiotic Ordered?: Yes Subjective Patient reports she feels better. Objective Vital Signs Date Time Temp Pulse Resp B/P (MAP) Pulse Ox O2 Delivery O2 Flow Rate FiO2 03/08/25 15:50 16 03/08/25 10:00 98.0 79 150/79 (102) 94 Room Air 03/05/25 19:30 95 Result Diagram: 03/08/25 0554 03/08/25 0554 Awake cooperative in no acute distress HEENT normocephalic atraumatic extraocular movements are intact,NGT in place. Neck supple, no JVD Chest: Clear to auscultation, no wheezes crackles rhonchi Heart: Regular rate rhythm, no murmur or gallop rub Abdomen: Somewhat distended Bandaged. Bowel sounds audible. Extremities no cyanosis clubbing or edema Neuro exam nonfocal. Other Results Medications reviewed Problem\Assessment\Plan Problems/Diagnosis: (1) Large bowel obstruction 64 years old female with a history of hypertension presented to the ED for generalized abdominal pain which started one day prior to admission. Patient previously has a perforated viscus which required her to have an ostomy which was subsequently reversed three years ago. # large bowel obstruction: Patient underwent laparotomy by Dr. Hirsch on 03/01/2025 with takedown of adhesions, mobilization of the splenic flexure, sigmoid resection with primary anastomosis . Please refer to his detailed operative report for further information. Pain control adequate. . Await return of bowel function. # vomiting:? Ileus. 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 Treat per surgery recommendations. NG tube to LWS # Hypovolemic shock : Resolved , monitor # Hypokalemia Replace per protocol. # Alcohol use disorder : No withdrawals reported . # Code status: Full code # Disposition To Med surg. Home when cleared by surgery. Date of Service: Mar 08, 2025 Billing Provider: MANJINDER STINSON MD Common Visit Codes: [id number] INP/OBS CARE(HIGH) MANJINDER STINSON MD Mar 08, 2025 16:33
[2025-03-08 17:03] LABS: CREATININE 0.54 MG/DL (0.40-0.90); PHOSPHORUS 3.0 MG/DL (2.3-4.5); TOTAL CARBON DIOXIDE 35.7 MMOL/L (24-32); eCRCL 102 ML/MIN; eGFR > 90 ML/MIN
[2025-03-08 18:00] VITALS: BP 154/94; PULSE 83; RESP 14; TEMP 97.9; O2SAT 95
[2025-03-08] MEDS: K and/or MAG REPLACEMENT MC SCH (20:00)
[2025-03-08] MEDS: magnesium hydroxide 30ml (MOM) UD suspension NG SCH (20:00)
[2025-03-08] MEDS: docusate sodium 100mg/10ml UD cup NG SCH (20:00)
--- NOTE | 2025-03-08 20:36 | PROGRESS NOTE ---
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 Dipesh Hirsch over the next couple of days Patient was having nausea and vomiting and had a HIDA scan for possible cholecystitis. While this was positive and concerning for cystic duct obstruction, patient has absolutely no right upper quadrant abdominal pain. With no gallstones, and nontender right upper quadrant, acalculous cholecystitis and this patient would be unusual She is stooling Her abdomen is softly distended Midline incision clean, dry, and intact Nasogastric tube in place We will continue the nasogastric tube overnight, however, likely clamping trials tomorrow morning Antibiotic Ordered?: N/A Objective Vitals Vital Signs Date Time Temp Pulse Resp B/P (MAP) Pulse Ox O2 Delivery O2 Flow Rate FiO2 03/08/25 16:50 16 03/08/25 10:00 98.0 79 150/79 (102) 94 Room Air 03/05/25 19:30 95 Lab Results: 03/08/25 0554 03/08/25 1631 RENNY TIMMONS MD Mar 08, 2025 20:36
[2025-03-08 20:40] VITALS: RESP 15; RESP 16
[2025-03-08 22:00] VITALS: BP 154/89; PULSE 84; RESP 14; TEMP 97.9; O2SAT 92
[2025-03-08] MEDS: FAT EMUL/SOY/MCT/OLIV/FISH OIL 100 ML IV SCH (22:14)
[2025-03-08] MEDS: ZINC/COPPER/MANGANESE/SELENIUM 1 ML, chromic chloride inj. 10 MCG, MVI, adult No.4 with... IV SCH (22:15)
[2025-03-09] VITALS (7 sets, daily range): BP systolic 116–179; BP diastolic 62–96; PULSE 83–114; RESP 15–16; TEMP 97.4–98.9; O2SAT 92–97
[2025-03-09 06:05] LABS: CREATININE 0.48 MG/DL (0.40-0.90); PHOSPHORUS 3.5 MG/DL (2.3-4.5); TOTAL CARBON DIOXIDE 33.4 MMOL/L (24-32); eCRCL 115 ML/MIN; eGFR > 90 ML/MIN
--- NOTE | 2025-03-09 09:11 | RADIOLOGY REPORT ---
Date: 03/09/2025 08:04 AM Examination: DI ABDOMEN,SINGLE VIEW(KUB) History: NGT placement, ileus, sbo Comparison: US ULTRASOUND OF ABDOMEN on DOS: 03/08/25, CT CT ABDOMEN PELVIS W/ IV ORAL CONTRAST on DOS: 03/07/25, CT CT ABDOMEN PELVIS W/ IV CONTRAST on DOS: 02/28/25, CT CT ABDOMEN PELVIS W/ IV CONTRAST on DOS: 02/18/25, CT CT ABDOMEN PELVIS on DOS: 06/10/24 TECHNIQUE: Frontal views of the abdomen was obtained. FINDINGS: Bowel gas pattern is unremarkable. Enteric tube tip projects over the expected region of the stomach. The lung bases demonstrates left retrocardiac opacities and small left pleural effusion. No acute osseous abnormality identified. Lower pelvis is collimated from field of view. IMPRESSION: Enteric tube tip projects over expected region stomach. Nonobstructive bowel gas pattern.
--- NOTE | 2025-03-09 11:43 | PROGRESS NOTE ---
Daily Progress Note Providers to CC ~ Antibiotic Timeout Antibiotic Ordered?: Yes Subjective States she has a lot of pain but reports improvement. Objective Vital Signs Date Time Temp Pulse Resp B/P (MAP) Pulse Ox O2 Delivery O2 Flow Rate FiO2 03/09/25 07:02 128/95 (106) 03/09/25 06:00 97.4 88 15 94 Room Air 03/09/25 04:21 96 Result Diagram: 03/08/25 0554 03/09/25 0510 Awake cooperative in no acute distress HEENT normocephalic atraumatic extraocular movements are intact,NGT not attached to suction. Neck supple, no JVD Chest: Clear to auscultation, no wheezes crackles rhonchi Heart: Regular rate rhythm, no murmur or gallop rub Abdomen: Bandaged. tender as expected Bowel sounds audible. Extremities no cyanosis clubbing or edema Neuro exam nonfocal. Other Results Medications reviewed Problem\Assessment\Plan Problems/Diagnosis: (1) Large bowel obstruction 64 years old female with a history of hypertension presented to the ED for generalized abdominal pain which started one day prior to admission. Patient previously has a perforated viscus which required her to have an ostomy which was subsequently reversed three years ago. # large bowel obstruction: Patient underwent laparotomy by Dr. Hirsch on 03/01/2025 with takedown of adhesions, mobilization of the splenic flexure, sigmoid resection with primary anastomosis . Please refer to his detailed operative report for further information. Pain control adequate. Continue treat per surgery recommendations. # vomiting:? Ileus. 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 Treat per surgery recommendations. NG in place however not attached to suction. Patient is on PPN, wean D5 Monitor and treat per surgery . # Hypovolemic shock : Resolved , monitor # Hypokalemia Replaced per protocol. # Alcohol use disorder : No withdrawals reported . MV . # Anemia : Monitor H/H # Code status: Full code # Disposition . Home when cleared by surgery. Date of Service: Mar 09, 2025 Billing Provider: MANJINDER STINSON MD Common Visit Codes: 68575-[id number] INP/OBS CARE(HIGH) MANJINDER STINSON MD Mar 09, 2025 11:43
[2025-03-09] MEDS: hydrALAZINE 20mg/ml inj. IV SCH (13:07)
--- NOTE | 2025-03-09 18:40 | PROGRESS NOTE ---
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 Dipesh Hirsch over the next couple of days Nasogastric tube was clamped today and clear liquid diet trialed Patient had no issues with nausea and continues to pass gas KUB shows nonobstructive bowel gas pattern She is stooling Her abdomen is softly distended Midline incision clean, dry, and intact Nasogastric tube in place Nasogastric tube removed Clear liquid diet, advance as tolerated Antibiotic Ordered?: Yes Objective Vitals Vital Signs Date Time Temp Pulse Resp B/P (MAP) Pulse Ox O2 Delivery O2 Flow Rate FiO2 03/09/25 13:07 83 03/09/25 10:00 98.0 16 165/88 (113) 92 Room Air 03/09/25 04:21 96 Lab Results: 03/08/25 0554 03/09/25 0510 RENNY TIMMONS MD Mar 09, 2025 18:40
[2025-03-10 06:00] VITALS: BP 115/69; PULSE 97; RESP 15; TEMP 98.5; O2SAT 97
[2025-03-10 06:34] LABS: CREATININE 0.63 MG/DL (0.40-0.90); PHOSPHORUS 3.8 MG/DL (2.3-4.5); TOTAL CARBON DIOXIDE 28.6 MMOL/L (24-32); eCRCL 88 ML/MIN; eGFR > 90 ML/MIN
[2025-03-10 11:00] VITALS: BP 122/75; PULSE 91; RESP 16; TEMP 97.7; O2SAT 98
--- NOTE | 2025-03-10 16:48 | DISCHARGE SUMMARY ---
Discharge Summary Providers to CC ~ Discharge Summary Admission Diagnosis: LARGE BOWEL OBSTRUCTION Hospital Course DATE OF ADMISSION: February 28, 2025 DATE OF DISCHARGE: March 10, 2025 CBC testing done on March 08, 2025 WBC 8.3 hemoglobin 8.7 hematocrit 25.7 platelet count 355. Serum chemistry done on March 10, 2025 sodium 135 potassium 4.2 creatinine 0.63 GFR greater than 90 normal liver enzymes. No anaerobes isolated from abdominal drainage Patient had multiple diagnostic studies done which include abdominal x-ray, HIDA scan, abdominal ultrasound, abdomen/pelvis CT, x-ray chest, abdomen and pelvis CT. Please see the details and results in actual electronic healthcare records Discharge Diagnosis\Comment: status post exploratory laparotomy, lysis of adhesions and sigmoid colectomy for anastomotic stricture h/o Alcoholic ketoacidosis Metabolic acidosis, h/o Alcohol intoxication Dehydration UGIB likely 2/2 esophagitis Anemia, normocytic HTN Hx reflux esophagitis, pre-pyloric antral ulceration, duodenitis Operations\Procedures: status post exploratory laparotomy, lysis of adhesions and sigmoid colectomy for anastomotic stricture Consultants: Dr Alexandra ,Dr Hirsch Complications: None Condition on DC: Stable Discharge Summary: 64 years old female with a history of hypertension presented to the ED for generalized abdominal pain which started one day prior to admission. Patient previously has a perforated viscus which required her to have an ostomy which was subsequently reversed three years ago. # large bowel obstruction: Patient underwent laparotomy by Dr. Hirsch on 03/01/2025 with takedown of adhesions, mobilization of the splenic flexure, sigmoid resection with primary anastomosis . Please refer to his detailed operative report for further information. Pain control adequate. Continued to treat per surgery recommendations. # Ileus resolved . DC ADMINISTRATION DEAN. Treat per surgery recommendations. Nasogastric tube removed, Clear liquid diet, advance as tolerated, She is stooling # Hypovolemic shock : Resolved , monitor # Hypokalemia Replaced per protocol. # Alcohol use disorder : No withdrawals reported . # Anemia : Monitor H/H Patient is feeling better she has been afebrile and getting discharged to rehab in stable condition. Medication reconciliation done for rehab discharge. Patient is seen and examined on the day of discharge. All labs, diagnostic workup and discharge plan discussed with patient before her discharge. All questions and queries answered to the best of my professional medical knowledge. I heard patient's concerns and address appropriately. corporate communications manager Sabra involved in patient's discharge plan. General-patient not in any acute distress, alert awake oriented, chronically ill-appearing/age-appropriate/looks comfortable/lethargic HEENT-atraumatic normocephalic, neck supple without elevated JVD, no thyromegaly or carotid bruit. No lymphadenopathy bilaterally. Eyes-no icterus or pallor seen in eyes Chest-clear to auscultation bilaterally, breathing nonlabored no tachypnea, no wheezing, no crepitation, no crackles. Heart-S1-S2 normal, regular heart rate no murmur Abdomen bowel sounds positive on auscultation, surgical dressing present on abdomen, no guarding, no rigidity Skin no active skin rash Neurology-grossly intact, nonfocal alert awake oriented Extremity- no pedal edema able to move all 4 extremities Psychiatry - patient is not confused or agitated cooperated during physical examination *Problems/Diagnosis: (1) Large bowel obstruction Status: Acute Total Time Spent on D/C: > 30 Minutes Date of Service: Mar 10, 2025 Billing Provider: NANDA PITTS MD Common Visit Codes: 12216-ONJ/OBS DISCH DAY >30min NANDA PITTS MD Mar 10, 2025 16:48
[2025-03-11] MEDS ORDERED: pantoprazole 40mg Tablet.DR PO SCH (08:00)
== END 2025-03-10 13:10 | DRG 329 ==
LOC: ER 15:42 → ED HOLD 21:56 → EDBEDREQ 03-01 06:04 → PCU 3S 03-01 06:55 → ORTHO 4S 03-06 03:35
PROVIDERS: ADMIT Internal Medicine Critical Care Medicine; ATTEND Family Medicine
PROC: BW211ZZ Computerized Tomography (CT Scan) of Abdomen and Pelvis using Low Osmolar Contrast (ICD-10-PCS; 2025-02-28)
PROC: 0T788DZ Dilation of Bilateral Ureters with Intraluminal Device, Via Natural or Artificial Opening Endoscopic (ICD-10-PCS; 2025-03-01)
PROC: 0DNE0ZZ Release Large Intestine, Open Approach (ICD-10-PCS; 2025-03-01)
PROC: 0W9J30Z Drainage of Pelvic Cavity with Drainage Device, Percutaneous Approach (ICD-10-PCS; 2025-03-01)
PROC: 3E0T3BZ Introduction of Anesthetic Agent into Peripheral Nerves and Plexi, Percutaneous Approach (ICD-10-PCS; 2025-03-01)
PROC: 0DBN0ZZ Excision of Sigmoid Colon, Open Approach (ICD-10-PCS; principal; 2025-03-01 11:30)
PROC: 05HB33Z Insertion of Infusion Device into Right Basilic Vein, Percutaneous Approach (ICD-10-PCS; 2025-03-04)
PROC: B54MZZA Ultrasonography of Right Upper Extremity Veins, Guidance (ICD-10-PCS; 2025-03-04)
PROC: BW211ZZ Computerized Tomography (CT Scan) of Abdomen and Pelvis using Low Osmolar Contrast (ICD-10-PCS; 2025-03-07)
PROC: 0D9670Z Drainage of Stomach with Drainage Device, Via Natural or Artificial Opening (ICD-10-PCS; 2025-03-08)
PROC: CF141ZZ Planar Nuclear Medicine Imaging of Gallbladder using Technetium 99m (Tc-99m) (ICD-10-PCS; 2025-03-08)
DX: K56.699 Other intestinal obstruction unspecified as to partial versus complete obstruction (principal); K21.01 Gastro-esophageal reflux disease with esophagitis, with bleeding; R57.1 Hypovolemic shock; E87.20 Acidosis, unspecified; K56.50 Intestinal adhesions [bands], unspecified as to partial versus complete obstruction; F41.9 Anxiety disorder, unspecified; Z20.822 Contact with and (suspected) exposure to COVID-19; I10 Essential (primary) hypertension; F10.10 Alcohol abuse, uncomplicated; E87.6 Hypokalemia; E86.0 Dehydration; D64.9 Anemia, unspecified; Z79.899 Other long term (current) drug therapy; Z87.11 Personal history of peptic ulcer disease
CPT/HCPCS: 36410; 36415; 71045; 74018; 74177; 76700; 76937; 78226; 80048; 80053; 80305; 81003; 81025; 82948; 83605; 83690; 83735; 84100; 84132; 84134; 84478; 85025; 87070; 87075; 87081; 87811; 88305; 88307; 93005; 97116; 97161; 97530; 99285; A4357; A4615; A4618; A6253; A6258; A6449; A7000; A9537; C1751; C1758; C1769; G0378; J0131; J0360; J0666; J0780; J1100; J1171; J1650; J1938; J2250; J2270; J2405; J2543; J2704; J2765; J3010; J3411; J3490; J7030; J7040; J7042; J7120; J7121; Q9963; Q9967